=== PATIENT | female | born 1965 | race Caucasian/White ===

== ENCOUNTER 2016-10-05 01:10 | Inpatient (IN) | payer MEDICARE, MEDICAID ==
[~2016-10-05] VITALS: Ht 172.7 cm; Wt 59.9 kg
[~2016-10-05 01:10] MED LIST: CARB200T6 PO; GABA-531 PO; OLAN5Z PO
[2016-10-05] MEDS ORDERED: QUEtiapine FUMARATE 100 MG TABLET PO PRN (02:15)
[2016-10-05] MEDS ORDERED: ZOLPIDEM TARTRATE 10 MG TABLET PO PRN (02:15)
[2016-10-05] MEDS ORDERED: INFLUENZA VIRUS VACCINE QVS 2016-17 (3YR+)/PF 60 MCG/0.5 ML SYRINGE IM ONE (03:45)
[2016-10-05 04:05] VITALS: BP 131/85
[2016-10-05] MEDS: NICOTINE 21 MG/24 HOUR PATCH TD SCH (10:13)
[2016-10-05] MEDS: BACITRACIN 28.4 GM OINTMENT TP SCH ×2 (10:13→21:29)
[2016-10-05] MEDS ORDERED: DiphenhydrAMINE HCL 50 MG/ML VIAL IM ONE (11:45)
[2016-10-05] MEDS ORDERED: LORazepam 2 MG/ML VIAL IM ONE (11:45)
[2016-10-05 16:12] VITALS: BP 110/67
[2016-10-05] MEDS: OLANZapine 7.5 MG TABLET PO SCH (21:29)
[2016-10-06] MEDS: LORazepam 2 MG TABLET PO PRN (06:59)
[2016-10-06 07:35] LABS: BASOPHILS # (AUTO) 0.04 K/uL (0.00-0.20); BASOPHILS % (AUTO) 0.6 % (0.0-2.0); EOSINOPHILS # (AUTO) 0.03 K/uL (0.00-0.70); EOSINOPHILS % (AUTO) 0.52 % (1.0-6.0); HEMATOCRIT 36.1 % (36-46); LYMPHOCYTES # (AUTO) 1.8 K/uL (1.0-4.8); LYMPHOCYTES % (AUTO) 28.2 % (22.0-44.0); MEAN CORPUSCULAR HEMOGLOBIN 28.6 pg (26.0-34.0); MEAN CORPUSCULAR HGB CONC 33.3 G/dL (31.0-37.0); MEAN CORPUSCULAR VOLUME 86 fL (80-100); MONOCYTES # (AUTO) 0.7 K/uL (0.1-1.0); MONOCYTES % (AUTO) 10.1 % (2.0-9.0); NEUTROPHILS % (AUTO) 60.6 % (40.0-70.0); PLATELET COUNT (AUTO) 224 K/uL (150-450); RED CELL DISTRIBUTION WIDTH 16.3 % (11.5-14.5); WHITE BLOOD COUNT (AUTO) 6.5 K/uL (4.5-11.0)
[2016-10-06 08:02] VITALS: BP 112/68
[2016-10-06 08:13] LABS: ALANINE AMINOTRANSFERASE 23 U/L (12-78); ALBUMIN 2.6 g/dL (3.4-5.0); ANION GAP 6 mmol/L (8-16); ASPARTATE AMINOTRANSFERASE 26 U/L (15-37); BILIRUBIN,TOTAL 0.2 mg/dL (0.1-1.0); CALCIUM, TOTAL 8.6 mg/dL (8.8-10.5); CARBON DIOXIDE 27 mmol/L (22-29); CHLORIDE 107 mmol/L (98-107); CHOL/HDL RATIO 2.8 (3.9-5.7); CREATININE 0.59 mg/dL (0.60-1.30); GLOMERULAR FILTR. RATE CALC > 60 mL/min (>60); POTASSIUM 3.7 mmol/L (3.5-5.1); SODIUM SERUM 140 mmol/L (136-145); THYROID STIMULATING HORMONE 0.79 uIU/mL (0.36-3.74); UREA NITROGEN, BLOOD 12 mg/dL (7-18)
[2016-10-06] MEDS: BACITRACIN 28.4 GM OINTMENT TP SCH ×2 (09:14→17:24)
[2016-10-06] MEDS: NICOTINE 21 MG/24 HOUR PATCH TD SCH (09:14)
[2016-10-06 16:11] VITALS: BP 111/67
[2016-10-06] MEDS: OLANZapine 7.5 MG TABLET PO SCH (20:38)
[2016-10-07 05:19] VITALS: BP_SYST 101; BP_SYST 108; BP_DIAS 68
[2016-10-07] MEDS: LORazepam 2 MG TABLET PO PRN ×2 (05:32→19:26)
[2016-10-07 08:22] VITALS: BP 110/72
[2016-10-07] MEDS: BACITRACIN 28.4 GM OINTMENT TP SCH ×2 (09:59→16:36)
[2016-10-07] MEDS: NICOTINE 21 MG/24 HOUR PATCH TD SCH (09:59)
[2016-10-07 16:44] VITALS: BP 90/63
[2016-10-07] MEDS: OLANZapine 7.5 MG TABLET PO SCH (20:34)
[2016-10-08] MEDS: NICOTINE 21 MG/24 HOUR PATCH TD SCH (08:22)
[2016-10-08] MEDS: BACITRACIN 28.4 GM OINTMENT TP SCH ×2 (08:22→16:38)
[2016-10-08 08:25] VITALS: BP 105/69
[2016-10-08] MEDS: LORazepam 2 MG TABLET PO PRN ×2 (08:31→20:42)
[2016-10-08] MEDS ORDERED: MAG HYDROX/AL HYDROX/SIMETH ES 30 ML SUSPENSION UDCUP PO PRN (16:00)
[2016-10-08 16:14] VITALS: BP 100/62
[2016-10-08] MEDS: OLANZapine 7.5 MG TABLET PO SCH (20:35)
[2016-10-08] MEDS ORDERED: AMITRIPTYLINE HCL 25 MG TABLET PO PRN (21:30)
[2016-10-09 05:56] VITALS: BP 98/65
[2016-10-09 08:14] VITALS: BP 91/55
[2016-10-09] MEDS ORDERED: TUBERCULIN, PURIFIED PROTEIN DERIVATIVE 5 TU/0.1 ML SYG ID ONE (09:00)
[2016-10-09 09:01] LABS: INR 0.9 (0.9-1.1); PROTHROMBIN TIME 9.8 SEC (9.4-11.6)
[2016-10-09] MEDS: NICOTINE 21 MG/24 HOUR PATCH TD SCH (09:04)
[2016-10-09] MEDS: BACITRACIN 28.4 GM OINTMENT TP SCH ×2 (09:05→16:37)
[2016-10-09 09:43] LABS: CREATINE KINASE MB 1.5 ng/mL (0-5); CREATINE KINASE, TOTAL 86 U/L (26-192)
[2016-10-09 13:20] VITALS: BP 110/61
[2016-10-09 16:05] VITALS: BP 103/78
[2016-10-09] MEDS: LORazepam 2 MG TABLET PO PRN (20:03)
[2016-10-09] MEDS: OLANZapine 7.5 MG TABLET PO SCH (20:35)
[2016-10-10 01:47] VITALS: BP 108/60
[2016-10-10 08:03] VITALS: BP 100/63
[2016-10-10] MEDS: BACITRACIN 28.4 GM OINTMENT TP SCH ×2 (08:31→16:32)
[2016-10-10] MEDS: NICOTINE 21 MG/24 HOUR PATCH TD SCH (08:31)
[2016-10-10 16:03] VITALS: BP 117/64
[2016-10-10] MEDS: OLANZapine 7.5 MG TABLET PO SCH (20:38)
[2016-10-10] MEDS: LORazepam 2 MG TABLET PO PRN (23:42)
[2016-10-11 00:01] VITALS: BP 108/66
[2016-10-11] MEDS: ACETAMINOPHEN 325 MG TABLET PO PRN (06:42)
[2016-10-11 08:05] VITALS: BP 106/68
[2016-10-11] MEDS: NICOTINE 21 MG/24 HOUR PATCH TD SCH (09:31)
[2016-10-11] MEDS: BACITRACIN 28.4 GM OINTMENT TP SCH ×2 (09:31→17:03)
[2016-10-11 16:06] VITALS: BP 109/65
[2016-10-11] MEDS: LORazepam 2 MG TABLET PO PRN (19:24)
[2016-10-11] MEDS: OLANZapine 7.5 MG TABLET PO SCH (20:05)
[2016-10-12 05:33] VITALS: BP 120/69
[2016-10-12 08:24] VITALS: BP 122/70
[2016-10-12] MEDS: BACITRACIN 28.4 GM OINTMENT TP SCH ×2 (09:28→16:12)
[2016-10-12] MEDS: NICOTINE 21 MG/24 HOUR PATCH TD SCH (09:28)
[2016-10-12] MEDS: LORazepam 2 MG TABLET PO PRN ×2 (09:28→20:25)
[2016-10-12 16:08] VITALS: BP 105/63
[2016-10-12] MEDS: OLANZapine 7.5 MG TABLET PO SCH (20:25)
[2016-10-13 00:37] VITALS: BP 106/71
[2016-10-13 08:25] VITALS: BP 120/69
[2016-10-13] MEDS: BACITRACIN 28.4 GM OINTMENT TP SCH ×2 (08:54→16:33)
[2016-10-13] MEDS: NICOTINE 21 MG/24 HOUR PATCH TD SCH (08:54)
[2016-10-13 16:00] VITALS: BP 115/67
[2016-10-13] MEDS: ACETAMINOPHEN 325 MG TABLET PO PRN (17:16)
[2016-10-13] MEDS: OLANZapine 7.5 MG TABLET PO SCH (20:34)
[2016-10-13] MEDS: LORazepam 2 MG TABLET PO PRN ×2 (22:56→23:01)
[2016-10-14 00:01] VITALS: BP 114/67
[2016-10-14 08:28] VITALS: BP 110/64
[2016-10-14] MEDS: NICOTINE 21 MG/24 HOUR PATCH TD SCH (08:54)
[2016-10-14] MEDS: BACITRACIN 28.4 GM OINTMENT TP SCH ×2 (08:56→16:39)
[2016-10-14 16:15] VITALS: BP 113/64
[2016-10-14] MEDS: LORazepam 2 MG TABLET PO PRN (17:07)
[2016-10-14] MEDS: OLANZapine 7.5 MG TABLET PO SCH (20:37)
[2016-10-15 05:42] VITALS: BP 118/69
[2016-10-15 08:06] VITALS: BP 108/63
[2016-10-15] MEDS: NICOTINE 21 MG/24 HOUR PATCH TD SCH (08:40)
[2016-10-15] MEDS: BACITRACIN 28.4 GM OINTMENT TP SCH ×2 (09:31→18:09)
[2016-10-15 16:00] VITALS: BP 110/70
[2016-10-15] MEDS: LORazepam 2 MG TABLET PO PRN (20:09)
[2016-10-15] MEDS: OLANZapine 7.5 MG TABLET PO SCH (20:34)
[2016-10-15] MEDS: DIVALPROEX SODIUM 500 MG DR TABLET PO SCH (20:40)
[2016-10-16 00:05] VITALS: BP 123/74
[2016-10-16] MEDS: NICOTINE 21 MG/24 HOUR PATCH TD SCH (08:52)
[2016-10-16] MEDS: BACITRACIN 28.4 GM OINTMENT TP SCH ×2 (08:53→16:35)
[2016-10-16] MEDS: DIVALPROEX SODIUM 500 MG DR TABLET PO SCH ×2 (08:55→20:12)
[2016-10-16 09:01] VITALS: BP 81/67
[2016-10-16] MEDS: ACETAMINOPHEN 325 MG TABLET PO PRN (13:11)
[2016-10-16 13:14] VITALS: BP 115/68
[2016-10-16] MEDS: LORazepam 2 MG TABLET PO PRN ×2 (14:01→19:22)
[2016-10-16 16:02] VITALS: BP 120/74
[2016-10-16] MEDS: OLANZapine 10 MG TABLET PO SCH (20:12)
[2016-10-16] MEDS ORDERED: OLANZapine 10 MG TABLET PO SCH (21:00)
[2016-10-17 05:47] VITALS: BP 115/80
[2016-10-17] MEDS: DIVALPROEX SODIUM 500 MG DR TABLET PO SCH ×2 (08:39→20:08)
[2016-10-17] MEDS: BACITRACIN 28.4 GM OINTMENT TP SCH ×2 (08:39→17:03)
[2016-10-17] MEDS: NICOTINE 21 MG/24 HOUR PATCH TD SCH (08:39)
[2016-10-17] MEDS: OLANZapine 10 MG TABLET PO SCH ×2 (08:39→20:09)
[2016-10-17] MEDS: LORazepam 2 MG TABLET PO PRN ×2 (08:43→20:08)
[2016-10-17 08:53] VITALS: BP 120/69
[2016-10-17 16:18] VITALS: BP 120/82
[2016-10-18 06:31] VITALS: BP 90/60
[2016-10-18] MEDS: OLANZapine 10 MG TABLET PO SCH ×2 (08:32→20:04)
[2016-10-18] MEDS: NICOTINE 21 MG/24 HOUR PATCH TD SCH (08:32)
[2016-10-18] MEDS: DIVALPROEX SODIUM 500 MG DR TABLET PO SCH ×2 (08:33→20:35)
[2016-10-18] MEDS: LORazepam 2 MG TABLET PO PRN ×2 (08:33→20:05)
[2016-10-18] MEDS: BACITRACIN 28.4 GM OINTMENT TP SCH ×2 (08:34→16:08)
[2016-10-18 10:25] VITALS: BP 112/75
[2016-10-18 16:06] VITALS: BP 108/62
[2016-10-19 03:30] VITALS: BP 114/73
[2016-10-19 08:20] VITALS: BP 115/65
[2016-10-19] MEDS: OLANZapine 10 MG TABLET PO SCH ×2 (08:24→20:04)
[2016-10-19] MEDS: NICOTINE 21 MG/24 HOUR PATCH TD SCH (08:24)
[2016-10-19] MEDS: BACITRACIN 28.4 GM OINTMENT TP SCH ×2 (08:26→16:55)
[2016-10-19] MEDS: DIVALPROEX SODIUM 500 MG DR TABLET PO SCH ×2 (09:00→21:00)
[2016-10-19 16:05] VITALS: BP 119/67
[2016-10-19] MEDS: LORazepam 2 MG TABLET PO PRN (22:15)
[2016-10-20 03:14] VITALS: BP 110/63
[2016-10-20 08:05] VITALS: BP 117/65
[2016-10-20] MEDS: OLANZapine 10 MG TABLET PO SCH (08:24)
[2016-10-20] MEDS: NICOTINE 21 MG/24 HOUR PATCH TD SCH (08:25)
[2016-10-20] MEDS: DIVALPROEX SODIUM 500 MG DR TABLET PO SCH (08:29)
[2016-10-20] MEDS: BACITRACIN 28.4 GM OINTMENT TP SCH (08:30)
[2016-10-20] MEDS ORDERED: DIVA500T35 PO (11:59)
[2016-10-20] MEDS ORDERED: OLAN10TA3 PO (11:59)
== END 2016-10-20 13:24 | disposition home or self-care (01) | DRG 885 ==
LOC: B2X 02:30 → EDSTATUS 02:58
DX: F25.0 Schizoaffective disorder, bipolar type (principal); E46 Unspecified protein-calorie malnutrition; R64 Cachexia; F17.210 Nicotine dependence, cigarettes, uncomplicated; F15.90 Other stimulant use, unspecified, uncomplicated; E55.9 Vitamin D deficiency, unspecified; G43.909 Migraine, unspecified, not intractable, without status migrainosus; K21.9 Gastro-esophageal reflux disease without esophagitis; Z66 Do not resuscitate; D64.9 Anemia, unspecified; B19.20 Unspecified viral hepatitis C without hepatic coma; J44.9 Chronic obstructive pulmonary disease, unspecified; S01.81XA Laceration without foreign body of other part of head, initial encounter; S01.01XA Laceration without foreign body of scalp, initial encounter; F15.10 Other stimulant abuse, uncomplicated; X58.XXXA Exposure to other specified factors, initial encounter; Y93.9 Activity, unspecified; Y92.89 Other specified places as the place of occurrence of the external cause; Y99.8 Other external cause status; Z87.440 Personal history of urinary (tract) infections; Z91.19 Patient's noncompliance with other medical treatment and regimen; Z59.0 Homelessness; Z91.5 Personal history of self-harm; Z88.8 Allergy status to other drugs, medicaments and biological substances; Z28.21 Immunization not carried out because of patient refusal
CPT/HCPCS: 82105; 82306; 82607; 82746; 83036; 83735; 84439; 84443; 86592; 87389; J1200; J2060; J3230

== ENCOUNTER 2016-10-22 19:10 | Inpatient (IN) | payer MEDICARE, MEDICAID ==
[~2016-10-22] VITALS: Ht 165.1 cm; Wt 60.6 kg
[~2016-10-22 19:10] MED LIST changes: -CARB200T6 PO; +DIVA500T35 PO; -GABA-531 PO; +OLAN10TA3 PO; -OLAN5Z PO
[2016-10-22 19:32] LABS: BASOPHILS % (AUTO) 0.4 % (0.0-2.0); EOSINOPHILS % (AUTO) 0.1 % (1.0-6.0); HEMATOCRIT 37.4 % (36-46); HEMOGLOBIN 12.2 g/dL (12.0-16.0); LYMPHOCYTES # (AUTO) 3.2 K/uL (1.0-4.8); LYMPHOCYTES % (AUTO) 33.5 % (22.0-44.0); MEAN CORPUSCULAR HGB CONC 32.7 G/dL (31.0-37.0); MEAN CORPUSCULAR VOLUME 85 fL (80-100); MONOCYTES % (AUTO) 10.4 % (2.0-9.0); NEUTROPHILS # (AUTO) 5.3 K/uL (1.8-7.7); NEUTROPHILS % (AUTO) 55.6 % (40.0-70.0); PLATELET COUNT (AUTO) 279 K/uL (150-450); RBC MORPHOLOGY COMMENT ABNORMAL RBC MORPH; RED BLOOD CELL COUNT(AUTO) 4.37 MIL/uL (4.00-5.20); RED CELL DISTRIBUTION WIDTH 17.7 % (11.5-14.5); WHITE BLOOD COUNT (AUTO) 9.6 K/uL (4.5-11.0)
[2016-10-22 19:39] LABS: ANION GAP 9 mmol/L (8-16); CALCIUM, TOTAL 9.4 mg/dL (8.8-10.5); CARBON DIOXIDE 28 mmol/L (22-29); CHLORIDE 105 mmol/L (98-107); CREATININE 0.87 mg/dL (0.60-1.30); GLOMERULAR FILTR. RATE CALC > 60 mL/min (>60); POTASSIUM 3.9 mmol/L (3.5-5.1); SODIUM SERUM 142 mmol/L (136-145); UREA NITROGEN, BLOOD 23 mg/dL (7-18)
[2016-10-22 19:49] LABS: ALANINE AMINOTRANSFERASE 54 U/L (12-78); ALBUMIN 3.8 g/dL (3.4-5.0); ASPARTATE AMINOTRANSFERASE 66 U/L (15-37); BILIRUBIN,TOTAL 0.3 mg/dL (0.1-1.0); TOTAL PROTEIN, SERUM 8.1 g/dL (6.4-8.2)
[2016-10-22 19:51] LABS: SALICYLATE 3.1 mg/dL (2.8-20.0)
[2016-10-22 19:52] LABS: ACETAMINOPHEN < 2 mcg/mL (10-30)
[2016-10-22] MEDS ORDERED: LORazepam 2 MG/ML VIAL IM ONE (20:00)
[2016-10-22] MEDS ORDERED: DiphenhydrAMINE HCL 50 MG/ML VIAL IM ONE (20:00)
[2016-10-22] MEDS ORDERED: HALOPERIDOL LACTATE 5 MG/ML VIAL IM ONE (20:00)
[2016-10-22] MEDS ORDERED: HALOPERIDOL 5 MG TABLET PO PRN (20:30)
[2016-10-22] MEDS ORDERED: ZOLPIDEM TARTRATE 10 MG TABLET PO PRN (20:30)
[2016-10-22] MEDS: DIVALPROEX SODIUM 500 MG DR TABLET PO SCH (21:00)
[2016-10-22] MEDS: OLANZapine 10 MG TABLET PO SCH (21:00)
[2016-10-22 21:34] VITALS: BP 114/59
[2016-10-22] MEDS ORDERED: PNEUMOCOCCAL VACCINE POLYVALENT 0.5 ML VIAL [PPSV23] IM ONE (22:00)
[2016-10-22] MEDS ORDERED: INFLUENZA VIRUS VACCINE QVS 2016-17 (3YR+)/PF 60 MCG/0.5 ML SYRINGE IM ONE (22:00)
[2016-10-23] MEDS ORDERED: LORazepam 2 MG/ML VIAL IM ONE ×2 (05:45→16:15)
[2016-10-23] MEDS ORDERED: DiphenhydrAMINE HCL 50 MG/ML VIAL IM ONE ×2 (05:45→16:15)
[2016-10-23] MEDS: DIVALPROEX SODIUM 500 MG DR TABLET PO SCH ×2 (09:00→20:32)
[2016-10-23] MEDS: OLANZapine 10 MG TABLET PO SCH ×2 (09:00→20:31)
[2016-10-24] MEDS ORDERED: DiphenhydrAMINE HCL 50 MG/ML VIAL IM ONE (00:30)
[2016-10-24] MEDS ORDERED: LORazepam 2 MG/ML VIAL IM ONE (00:30)
[2016-10-24] MEDS: OLANZapine 10 MG TABLET PO SCH ×2 (08:27→20:19)
[2016-10-24] MEDS: DIVALPROEX SODIUM 500 MG DR TABLET PO SCH ×2 (08:28→20:19)
[2016-10-24 08:41] VITALS: BP 105/66
[2016-10-24] MEDS: NICOTINE 21 MG/24 HOUR PATCH TD SCH (09:53)
[2016-10-24 16:14] VITALS: BP 102/68
[2016-10-25] MEDS: DIVALPROEX SODIUM 500 MG DR TABLET PO SCH ×2 (08:07→20:25)
[2016-10-25] MEDS: OLANZapine 10 MG TABLET PO SCH ×2 (08:07→20:25)
[2016-10-25] MEDS: NICOTINE 21 MG/24 HOUR PATCH TD SCH (08:07)
[2016-10-25 08:16] VITALS: BP 105/65
[2016-10-25 13:15] VITALS: BP 109/67
[2016-10-25] MEDS: IBUPROFEN 600 MG TABLET PO PRN (14:18)
[2016-10-25 15:18] VITALS: BP 110/65
[2016-10-26] MEDS: IBUPROFEN 600 MG TABLET PO PRN ×2 (03:18→20:57)
[2016-10-26] MEDS: OLANZapine 10 MG TABLET PO SCH ×2 (08:03→20:12)
[2016-10-26] MEDS: NICOTINE 21 MG/24 HOUR PATCH TD SCH (08:04)
[2016-10-26] MEDS: DIVALPROEX SODIUM 500 MG DR TABLET PO SCH ×2 (08:05→20:12)
[2016-10-26 08:18] VITALS: BP 110/64
[2016-10-26 17:59] VITALS: BP 121/78
[2016-10-27 06:00] VITALS: BP 140/71
[2016-10-27] MEDS: DIVALPROEX SODIUM 500 MG DR TABLET PO SCH ×3 (08:09→20:02)
[2016-10-27] MEDS: OLANZapine 10 MG TABLET PO SCH (08:09)
[2016-10-27] MEDS: NICOTINE 21 MG/24 HOUR PATCH TD SCH (08:09)
[2016-10-27 08:24] VITALS: BP 116/74
[2016-10-27] MEDS ORDERED: OLANZapine 5 MG TABLET PO ONE (09:15)
[2016-10-27] MEDS: LORazepam 2 MG TABLET PO PRN (20:02)
[2016-10-27] MEDS: OLANZapine 7.5 MG TABLET PO SCH (20:03)
[2016-10-28 08:22] VITALS: BP 113/64
[2016-10-28] MEDS: DIVALPROEX SODIUM 500 MG DR TABLET PO SCH ×2 (08:33→20:39)
[2016-10-28] MEDS: NICOTINE 21 MG/24 HOUR PATCH TD SCH (08:33)
[2016-10-28] MEDS: OLANZapine 7.5 MG TABLET PO SCH ×2 (08:33→20:39)
[2016-10-28 16:14] VITALS: BP 104/73
[2016-10-28] MEDS: IBUPROFEN 600 MG TABLET PO PRN (19:51)
[2016-10-28] MEDS: LORazepam 2 MG TABLET PO PRN (19:51)
[2016-10-29 04:25] VITALS: BP 123/76
[2016-10-29] MEDS ORDERED: ACETAMINOPHEN 325 MG TABLET PO PRN (04:30)
[2016-10-29] MEDS: OLANZapine 7.5 MG TABLET PO SCH (08:16)
[2016-10-29] MEDS: DIVALPROEX SODIUM 500 MG DR TABLET PO SCH (08:17)
[2016-10-29] MEDS: NICOTINE 21 MG/24 HOUR PATCH TD SCH (08:17)
[2016-10-29 08:43] VITALS: BP 124/68
== END 2016-10-29 13:42 | disposition home or self-care (01) | DRG 885 ==
LOC: EMS 19:13 → B3A 20:28
DX: F25.0 Schizoaffective disorder, bipolar type (principal); F11.20 Opioid dependence, uncomplicated; F14.20 Cocaine dependence, uncomplicated; F15.20 Other stimulant dependence, uncomplicated; J44.9 Chronic obstructive pulmonary disease, unspecified; K21.9 Gastro-esophageal reflux disease without esophagitis; B19.20 Unspecified viral hepatitis C without hepatic coma; F17.210 Nicotine dependence, cigarettes, uncomplicated; G43.909 Migraine, unspecified, not intractable, without status migrainosus; D64.9 Anemia, unspecified; I10 Essential (primary) hypertension; F11.10 Opioid abuse, uncomplicated; F12.20 Cannabis dependence, uncomplicated; Z28.21 Immunization not carried out because of patient refusal; Z71.6 Tobacco abuse counseling; Z71.51 Drug abuse counseling and surveillance of drug abuser; Z88.8 Allergy status to other drugs, medicaments and biological substances; Z79.899 Other long term (current) drug therapy; Z59.0 Homelessness; Z91.19 Patient's noncompliance with other medical treatment and regimen; Z80.9 Family history of malignant neoplasm, unspecified; Z82.61 Family history of arthritis
CPT/HCPCS: 51701; 87081; 90471; 96372; 99285; G0480; G0481; J1200; J1630; J2060; J3230

== ENCOUNTER 2016-11-09 05:06 | Emergency (ER) | payer MEDICARE, MEDICAID ==
[~2016-11-09] VITALS: Ht 172.7 cm; Wt 70.5 kg
[2016-11-09 06:14] LABS: ANION GAP 8 mmol/L (8-16); CALCIUM, TOTAL 8.5 mg/dL (8.8-10.5); CARBON DIOXIDE 26 mmol/L (22-29); CHLORIDE 104 mmol/L (98-107); GLOMERULAR FILTR. RATE CALC > 60 mL/min (>60); POTASSIUM 3.7 mmol/L (3.5-5.1); SODIUM SERUM 138 mmol/L (136-145); UREA NITROGEN, BLOOD 13 mg/dL (7-18)
[2016-11-09 06:21] LABS: ALANINE AMINOTRANSFERASE 29 U/L (12-78); ALBUMIN 2.8 g/dL (3.4-5.0); ASPARTATE AMINOTRANSFERASE 24 U/L (15-37); BILIRUBIN,TOTAL 0.2 mg/dL (0.1-1.0); TOTAL PROTEIN, SERUM 6.3 g/dL (6.4-8.2)
[2016-11-09 06:33] LABS: HEMATOCRIT 36.3 % (36-46); HEMOGLOBIN 11.8 g/dL (12.0-16.0); MEAN CORPUSCULAR HEMOGLOBIN 28.3 pg (26.0-34.0); MEAN CORPUSCULAR HGB CONC 32.5 G/dL (31.0-37.0); MEAN CORPUSCULAR VOLUME 87 fL (80-100); PLATELET COUNT (AUTO) 246 K/uL (150-450); RED BLOOD CELL COUNT(AUTO) 4.16 MIL/uL (4.00-5.20); RED CELL DISTRIBUTION WIDTH 18.7 % (11.5-14.5); WHITE BLOOD COUNT (AUTO) 10.4 K/uL (4.5-11.0)
[2016-11-09 06:34] LABS: BASOPHILS % (AUTO) 0.7 % (0.0-2.0); EOSINOPHILS % (AUTO) 1.7 % (1.0-6.0); LYMPHOCYTES # (AUTO) 2.8 K/uL (1.0-4.8); LYMPHOCYTES % (AUTO) 26.5 % (22.0-44.0); MONOCYTES # (AUTO) 0.8 K/uL (0.1-1.0); MONOCYTES % (AUTO) 7.8 % (2.0-9.0); NEUTROPHILS # (AUTO) 6.6 K/uL (1.8-7.7); NEUTROPHILS % (AUTO) 63.3 % (40.0-70.0)
[2016-11-09 11:20] VITALS: BP 124/69
== END 2016-11-09 11:44 | disposition home or self-care (01) ==
LOC: EMS 05:08
DX: F15.10 Other stimulant abuse, uncomplicated (principal); F11.90 Opioid use, unspecified, uncomplicated; F14.90 Cocaine use, unspecified, uncomplicated; F20.9 Schizophrenia, unspecified; J44.9 Chronic obstructive pulmonary disease, unspecified; K21.9 Gastro-esophageal reflux disease without esophagitis; F17.210 Nicotine dependence, cigarettes, uncomplicated; Z88.5 Allergy status to narcotic agent
CPT/HCPCS: 36415; 80053; 85025; 99284; G0480

== ENCOUNTER 2016-11-26 11:22 | Inpatient (IN) | payer MEDICARE, MEDICAID ==
[~2016-11-26] VITALS: Ht 172.7 cm; Wt 57.2 kg
[2016-11-26 12:25] LABS: BASOPHILS # (AUTO) 0.04 K/uL (0.00-0.20); BASOPHILS % (AUTO) 0.7 % (0.0-2.0); EOSINOPHILS % (AUTO) 1.52 % (1.0-6.0); HEMATOCRIT 34.5 % (36-46); HEMOGLOBIN 11.4 g/dL (12.0-16.0); LYMPHOCYTES # (AUTO) 2.3 K/uL (1.0-4.8); LYMPHOCYTES % (AUTO) 36.8 % (22.0-44.0); MEAN CORPUSCULAR HEMOGLOBIN 27.9 pg (26.0-34.0); MEAN CORPUSCULAR HGB CONC 32.9 G/dL (31.0-37.0); MEAN CORPUSCULAR VOLUME 85 fL (80-100); MONOCYTES # (AUTO) 0.4 K/uL (0.1-1.0); MONOCYTES % (AUTO) 6.1 % (2.0-9.0); NEUTROPHILS # (AUTO) 3.5 K/uL (1.8-7.7); NEUTROPHILS % (AUTO) 54.9 % (40.0-70.0); PLATELET COUNT (AUTO) 217 K/uL (150-450); RED BLOOD CELL COUNT(AUTO) 4.07 MIL/uL (4.00-5.20); RED CELL DISTRIBUTION WIDTH 19.9 % (11.5-14.5); WHITE BLOOD COUNT (AUTO) 6.3 K/uL (4.5-11.0)
[2016-11-26 12:27] LABS: RBC MORPHOLOGY COMMENT ABNORMAL RBC MORPH
[2016-11-26 12:34] LABS: ANION GAP 6 mmol/L (8-16); CALCIUM, TOTAL 8.9 mg/dL (8.8-10.5); CARBON DIOXIDE 28 mmol/L (22-29); CHLORIDE 106 mmol/L (98-107); CREATININE 0.53 mg/dL (0.60-1.30); GLOMERULAR FILTR. RATE CALC > 60 mL/min (>60); POTASSIUM 3.7 mmol/L (3.5-5.1); SODIUM SERUM 140 mmol/L (136-145); UREA NITROGEN, BLOOD 11 mg/dL (7-18)
[2016-11-26 12:43] LABS: ALANINE AMINOTRANSFERASE 28 U/L (12-78); ALBUMIN 2.7 g/dL (3.4-5.0); ASPARTATE AMINOTRANSFERASE 24 U/L (15-37); BILIRUBIN,TOTAL 0.1 mg/dL (0.1-1.0)
[2016-11-26] MEDS ORDERED: HALOPERIDOL 5 MG TABLET PO PRN (14:00)
[2016-11-26] MEDS ORDERED: DiphenhydrAMINE HCL 50 MG/ML VIAL ONE (16:11)
[2016-11-26] MEDS ORDERED: HALOPERIDOL LACTATE 5 MG/ML VIAL ONE (16:11)
[2016-11-26] MEDS ORDERED: LORazepam 2 MG/ML VIAL ONE (16:11)
[2016-11-26] MEDS ORDERED: DiphenhydrAMINE HCL 50 MG/ML VIAL IM ONE (16:15)
[2016-11-26] MEDS ORDERED: HALOPERIDOL LACTATE 5 MG/ML VIAL IM ONE (16:15)
[2016-11-26] MEDS ORDERED: LORazepam 2 MG/ML VIAL IM ONE (16:15)
[2016-11-26 16:30] VITALS: BP 161/97
[2016-11-26] MEDS ORDERED: PNEUMOCOCCAL VACCINE POLYVALENT 0.5 ML VIAL [PPSV23] IM ONE (18:00)
[2016-11-26] MEDS ORDERED: BACITRACIN 28.4 GM OINTMENT TP PRN (18:30)
[2016-11-27] MEDS ORDERED: ChlorproMAZINE HCL 50 MG TABLET PO PRN (10:00)
[2016-11-27] MEDS ORDERED: DIVALPROEX SODIUM 500 MG ER TABLET PO SCH (10:00)
[2016-11-27] MEDS: DIVALPROEX SODIUM 500 MG DR TABLET PO SCH ×2 (10:17→20:21)
[2016-11-27] MEDS: OLANZapine 7.5 MG TABLET PO SCH ×2 (10:17→20:22)
[2016-11-27] MEDS ORDERED: CloNIDine HCL 0.1 MG TABLET PO PRN (12:00)
[2016-11-27] MEDS ORDERED: ACETAMINOPHEN 325 MG TABLET PO PRN (12:00)
[2016-11-27] MEDS ORDERED: IBUPROFEN 600 MG TABLET PO PRN (12:00)
[2016-11-27 16:27] VITALS: BP 110/68
[2016-11-27] MEDS: ZOLPIDEM TARTRATE 10 MG TABLET PO PRN (21:05)
[2016-11-28] MEDS: AmLODIPine BESYLATE 2.5 MG TABLET PO SCH ×2 (09:00→09:26)
[2016-11-28] MEDS: DIVALPROEX SODIUM 500 MG DR TABLET PO SCH ×2 (09:25→20:39)
[2016-11-28] MEDS: OLANZapine 7.5 MG TABLET PO SCH ×2 (09:26→20:39)
[2016-11-28] MEDS ORDERED: ALBUTEROL SULFATE HFA 90 MCG/PUFF 8 GM INHALER IH PRN (11:00)
[2016-11-28] MEDS: ZOLPIDEM TARTRATE 10 MG TABLET PO PRN (21:03)
[2016-11-29] MEDS: AmLODIPine BESYLATE 2.5 MG TABLET PO SCH (09:00)
[2016-11-29] MEDS: DIVALPROEX SODIUM 500 MG DR TABLET PO SCH ×2 (09:25→20:37)
[2016-11-29] MEDS: OLANZapine 7.5 MG TABLET PO SCH ×2 (09:25→20:38)
[2016-11-29] MEDS: NICOTINE 21 MG/24 HOUR PATCH TD SCH (16:56)
[2016-11-29] MEDS: ZOLPIDEM TARTRATE 10 MG TABLET PO PRN (21:01)
[2016-11-30] MEDS: DIVALPROEX SODIUM 500 MG DR TABLET PO SCH ×2 (08:51→20:33)
[2016-11-30] MEDS: OLANZapine 7.5 MG TABLET PO SCH ×2 (08:51→20:33)
[2016-11-30] MEDS: NICOTINE 21 MG/24 HOUR PATCH TD SCH (08:52)
[2016-11-30] MEDS: AmLODIPine BESYLATE 2.5 MG TABLET PO SCH (09:00)
[2016-11-30 16:20] VITALS: BP 135/68
[2016-11-30] MEDS: ZOLPIDEM TARTRATE 10 MG TABLET PO PRN (21:04)
[2016-12-01 07:00] VITALS: BP 130/78
[2016-12-01 08:39] VITALS: BP 110/60
[2016-12-01] MEDS: OLANZapine 7.5 MG TABLET PO SCH ×2 (08:40→20:35)
[2016-12-01] MEDS: DIVALPROEX SODIUM 500 MG DR TABLET PO SCH ×2 (08:40→20:35)
[2016-12-01] MEDS: AmLODIPine BESYLATE 2.5 MG TABLET PO SCH (08:40)
[2016-12-01] MEDS: NICOTINE 21 MG/24 HOUR PATCH TD SCH (08:41)
[2016-12-01 17:03] VITALS: BP 97/67
[2016-12-02 08:23] VITALS: BP 109/60
[2016-12-02] MEDS: DIVALPROEX SODIUM 500 MG DR TABLET PO SCH ×2 (09:00→21:27)
[2016-12-02] MEDS: OLANZapine 7.5 MG TABLET PO SCH ×2 (09:00→21:27)
[2016-12-02] MEDS: AmLODIPine BESYLATE 2.5 MG TABLET PO SCH (09:00)
[2016-12-02] MEDS: NICOTINE 21 MG/24 HOUR PATCH TD SCH (09:25)
[2016-12-02 16:40] VITALS: BP 126/69
[2016-12-02] MEDS: LORazepam 2 MG TABLET PO PRN (16:50)
[2016-12-03 06:28] VITALS: BP 121/74
[2016-12-03 08:13] VITALS: BP 100/54
[2016-12-03] MEDS: NICOTINE 21 MG/24 HOUR PATCH TD SCH (08:42)
[2016-12-03] MEDS: AmLODIPine BESYLATE 2.5 MG TABLET PO SCH (08:42)
[2016-12-03] MEDS: OLANZapine 7.5 MG TABLET PO SCH ×2 (08:42→20:13)
[2016-12-03] MEDS: DIVALPROEX SODIUM 500 MG DR TABLET PO SCH ×2 (08:42→20:13)
[2016-12-03 16:11] VITALS: BP 102/60
[2016-12-03] MEDS: LORazepam 2 MG TABLET PO PRN (22:08)
[2016-12-04 05:08] VITALS: BP 101/68
[2016-12-04] MEDS: AmLODIPine BESYLATE 2.5 MG TABLET PO SCH (08:16)
[2016-12-04] MEDS: OLANZapine 7.5 MG TABLET PO SCH ×2 (08:16→21:33)
[2016-12-04] MEDS: DIVALPROEX SODIUM 500 MG DR TABLET PO SCH ×2 (08:16→21:33)
[2016-12-04] MEDS: NICOTINE 21 MG/24 HOUR PATCH TD SCH (08:16)
[2016-12-04 08:21] LABS: CHOL/HDL RATIO 5.1 (3.9-5.7)
[2016-12-04 09:06] VITALS: BP 100/53
[2016-12-04 16:30] VITALS: BP 107/65
[2016-12-04] MEDS: LORazepam 2 MG TABLET PO PRN (18:44)
[2016-12-05 08:43] VITALS: BP 100/56
[2016-12-05] MEDS: OLANZapine 7.5 MG TABLET PO SCH ×2 (09:50→20:20)
[2016-12-05] MEDS: NICOTINE 21 MG/24 HOUR PATCH TD SCH (09:50)
[2016-12-05] MEDS: DIVALPROEX SODIUM 500 MG DR TABLET PO SCH ×2 (09:50→20:20)
[2016-12-05 16:47] VITALS: BP 108/60
[2016-12-05 19:40] VITALS: BP 110/68
[2016-12-05] MEDS: LORazepam 2 MG TABLET PO PRN (19:45)
[2016-12-06 08:14] VITALS: BP 113/68
[2016-12-06] MEDS: DIVALPROEX SODIUM 500 MG DR TABLET PO SCH ×2 (09:32→20:13)
[2016-12-06] MEDS: OLANZapine 7.5 MG TABLET PO SCH ×2 (09:32→20:13)
[2016-12-06] MEDS: NICOTINE 21 MG/24 HOUR PATCH TD SCH (09:33)
[2016-12-06] MEDS: LORazepam 2 MG TABLET PO PRN ×2 (15:47→20:13)
[2016-12-06 16:20] VITALS: BP_SYST 109; BP_DIAS 7; BP_DIAS 76
[2016-12-07 08:11] VITALS: BP 125/81
[2016-12-07] MEDS: NICOTINE 21 MG/24 HOUR PATCH TD SCH (08:31)
[2016-12-07] MEDS: DIVALPROEX SODIUM 500 MG DR TABLET PO SCH ×2 (08:31→20:00)
[2016-12-07] MEDS: OLANZapine 7.5 MG TABLET PO SCH ×2 (08:31→20:00)
[2016-12-07] MEDS: LORazepam 2 MG TABLET PO PRN ×2 (14:54→20:09)
[2016-12-07 16:00] VITALS: BP 107/67
[2016-12-07 17:00] VITALS: BP 109/66
[2016-12-08] MEDS: OLANZapine 7.5 MG TABLET PO SCH (08:24)
[2016-12-08] MEDS: NICOTINE 21 MG/24 HOUR PATCH TD SCH (08:24)
[2016-12-08] MEDS: DIVALPROEX SODIUM 500 MG DR TABLET PO SCH (08:24)
[2016-12-08 08:58] VITALS: BP 100/59
[2016-12-08] MEDS ORDERED: DIVA500T35 PO (09:38)
[2016-12-08] MEDS ORDERED: OLAN7.5T2 PO (09:44)
== END 2016-12-08 14:57 | disposition home or self-care (01) | DRG 885 ==
LOC: EMS 11:24 → EEVIPCON 11:24 → B3A 15:08
PROVIDERS: ADMIT Psychiatry & Neurology Psychiatry
DX: F25.0 Schizoaffective disorder, bipolar type (principal); E43 Unspecified severe protein-calorie malnutrition; R64 Cachexia; Z68.1 Body mass index [BMI] 19.9 or less, adult; F12.90 Cannabis use, unspecified, uncomplicated; F11.90 Opioid use, unspecified, uncomplicated; F17.210 Nicotine dependence, cigarettes, uncomplicated; K21.9 Gastro-esophageal reflux disease without esophagitis; E78.5 Hyperlipidemia, unspecified; E88.09 Other disorders of plasma-protein metabolism, not elsewhere classified; J44.9 Chronic obstructive pulmonary disease, unspecified; D64.9 Anemia, unspecified; B19.20 Unspecified viral hepatitis C without hepatic coma; F15.90 Other stimulant use, unspecified, uncomplicated; I10 Essential (primary) hypertension; G43.909 Migraine, unspecified, not intractable, without status migrainosus; T14.8 Other injury of unspecified body region; Z53.29 Procedure and treatment not carried out because of patient's decision for other reasons; X58.XXXA Exposure to other specified factors, initial encounter; Y93.89 Activity, other specified; Y92.89 Other specified places as the place of occurrence of the external cause; Y99.8 Other external cause status; Z22.322 Carrier or suspected carrier of Methicillin resistant Staphylococcus aureus; Z88.8 Allergy status to other drugs, medicaments and biological substances; Z91.19 Patient's noncompliance with other medical treatment and regimen; Z28.21 Immunization not carried out because of patient refusal; Z91.5 Personal history of self-harm; Z59.0 Homelessness; Z79.899 Other long term (current) drug therapy
CPT/HCPCS: 84439; 87081; 90471; 99285; G0480; J1200; J1630; J2060

== ENCOUNTER 2018-02-14 20:11 | Inpatient (IN) | payer MEDICARE, MEDICAID ==
[~2018-02-14] VITALS: Ht 170.2 cm; Wt 80.0 kg
[~2018-02-14 20:11] MED LIST changes: +DIVA-78 PO; -DIVA500T35 PO; -OLAN10TA3 PO; +OLAN7.5T2 PO; +SERT50TA12 PO
[2018-02-14] MEDS ORDERED: LORazepam 2 MG/ML VIAL IM ONE (21:00)
[2018-02-14] MEDS ORDERED: HALOPERIDOL LACTATE 5 MG/ML VIAL IM ONE (21:00)
[2018-02-14] MEDS ORDERED: DiphenhydrAMINE HCL 50 MG/ML VIAL IM ONE (21:00)
[2018-02-14] MEDS ORDERED: LORazepam 2 MG TABLET PO PRN (21:30)
[2018-02-14] MEDS ORDERED: ZOLPIDEM TARTRATE 10 MG TABLET PO PRN (21:30)
[2018-02-14] MEDS ORDERED: HALOPERIDOL 5 MG TABLET PO PRN (21:30)
[2018-02-14 21:59] LABS: HEMATOCRIT 34.6 % (36-46); HEMOGLOBIN 11.6 g/dL (12.0-16.0); MEAN CORPUSCULAR HEMOGLOBIN 27.9 pg (26.0-34.0); MEAN CORPUSCULAR HGB CONC 33.4 G/dL (31.0-37.0); MEAN CORPUSCULAR VOLUME 83 fL (80-100); PLATELET COUNT (AUTO) 238 K/uL (150-450); RED BLOOD CELL COUNT(AUTO) 4.15 MIL/uL (4.00-5.20); RED CELL DISTRIBUTION WIDTH 17.7 % (11.5-14.5)
[2018-02-14] MEDS ORDERED: BACITRACIN 0.9 GM PACKET OINTMENT TP ONE (22:00)
[2018-02-14] MEDS ORDERED: PERTUSS(ACELL),DIPH,TET VAC/PF 0.5 ML VIAL IM ONE (22:00)
[2018-02-14 22:08] LABS: ANION GAP 13 mmol/L (8-16); CALCIUM, TOTAL 8.5 mg/dL (8.8-10.5); CARBON DIOXIDE 19 mmol/L (22-29); CHLORIDE 105 mmol/L (98-107); CREATININE 0.75 mg/dL (0.60-1.30); GLOMERULAR FILTR. RATE CALC > 60 mL/min (>60); GLUCOSE,RANDOM 77 mg/dL (70-110); POTASSIUM 3.4 mmol/L (3.5-5.1); SODIUM SERUM 137 mmol/L (136-145); UREA NITROGEN, BLOOD 12 mg/dL (7-18)
[2018-02-14 22:14] LABS: ALANINE AMINOTRANSFERASE 17 U/L (12-78); ALBUMIN 2.9 g/dL (3.4-5.0); ALKALINE PHOSPHATASE 52 U/L (46-116); ASPARTATE AMINOTRANSFERASE 19 U/L (15-37); BILIRUBIN,TOTAL 0.1 mg/dL (0.1-1.0); TOTAL PROTEIN, SERUM 5.9 g/dL (6.4-8.2)
[2018-02-14 22:26] LABS: VALPROIC ACID < 3 mcg/mL (50-100)
[2018-02-14 22:30] LABS: BAND NEUTROPHILS % (MANUAL) 0 % (0-5)
[2018-02-14 22:34] LABS: BASOPHILS % (MANUAL) 1 % (0-2); EOSINOPHILS % (MANUAL) 3 % (1-6); LYMPHOCYTES % (MANUAL) 65 % (22-44); MONOCYTES % (MANUAL) 3 % (2-9); REACTIVE LYMPHOCYTES 3 % (0-0); SEGMENTED NEUTROPHILS % 25 % (40-70)
[2018-02-14 22:35] LABS: AMPHET/METH SCREEN,URINE POSITIVE (NEGATIVE); BARBITURATE SCREEN, URINE NEGATIVE (NEGATIVE); BENZODIAZEPINES SCREEN,URINE NEGATIVE (NEGATIVE); CANNABINOID SCREEN,URINE NEGATIVE (NEGATIVE); COCAINE SCREEN,URINE NEGATIVE (NEGATIVE); METHADONE SCREEN, URINE NEGATIVE (NEGATIVE); OPIATE SCREEN,URINE NEGATIVE (NEGATIVE)
[2018-02-14 22:36] LABS: PHENCYCLIDINE SCREEN,URINE NEGATIVE (NEGATIVE)
[2018-02-15] VITALS (9 sets, daily range): BP systolic 116–138; BP diastolic 63–89
[2018-02-15] MEDS: SERTRALINE HCL 50 MG TABLET PO SCH (09:58)
[2018-02-15] MEDS: OLANZapine 7.5 MG TABLET PO SCH ×2 (09:58→20:18)
[2018-02-15] MEDS: DIVALPROEX SODIUM 500 MG DR TABLET PO SCH ×2 (09:58→20:18)
[2018-02-15] MEDS ORDERED: PNEUMOCOCCAL VACCINE POLYVALENT 0.5 ML VIAL [PPSV23] IM ONE (11:00)
[2018-02-15] MEDS ORDERED: POTASSIUM CHLORIDE 20 MEQ ER TABLET PO ONE (19:00)
[2018-02-16 01:00] VITALS: BP 111/73
[2018-02-16 05:00] VITALS: BP 119/82
[2018-02-16] MEDS: OLANZapine 7.5 MG TABLET PO SCH ×2 (11:02→20:11)
[2018-02-16] MEDS: SERTRALINE HCL 50 MG TABLET PO SCH (11:02)
[2018-02-16] MEDS: DIVALPROEX SODIUM 500 MG DR TABLET PO SCH ×2 (11:02→20:11)
[2018-02-16 16:00] VITALS: BP 100/54
[2018-02-16 16:39] VITALS: BP 99/54
[2018-02-16 19:52] VITALS: BP 103/58
[2018-02-16 21:00] VITALS: BP 100/56
[2018-02-17] MEDS: BACITRACIN 28.4 GM OINTMENT TP SCH (09:00)
[2018-02-17 09:04] VITALS: BP 123/78
[2018-02-17] MEDS: OLANZapine 7.5 MG TABLET PO SCH ×2 (09:25→20:43)
[2018-02-17] MEDS: DIVALPROEX SODIUM 500 MG DR TABLET PO SCH ×2 (09:25→20:43)
[2018-02-17] MEDS: SERTRALINE HCL 50 MG TABLET PO SCH (09:26)
[2018-02-17] MEDS ORDERED: ACETAMINOPHEN 325 MG TABLET PO PRN (11:00)
[2018-02-17] MEDS ORDERED: MAGNESIUM HYDROXIDE SUSPENSION 30 ML UDCUP PO PRN (11:00)
[2018-02-17] MEDS: NICOTINE 21 MG/24 HOUR PATCH TD SCH (12:52)
[2018-02-17 20:06] VITALS: BP 118/70
[2018-02-18 08:00] VITALS: BP 117/73
[2018-02-18] MEDS: DIVALPROEX SODIUM 500 MG DR TABLET PO SCH (08:22)
[2018-02-18] MEDS: SERTRALINE HCL 50 MG TABLET PO SCH (08:23)
[2018-02-18] MEDS: OLANZapine 7.5 MG TABLET PO SCH (08:23)
[2018-02-18] MEDS: NICOTINE 21 MG/24 HOUR PATCH TD SCH (08:29)
[2018-02-18] MEDS: BACITRACIN 28.4 GM OINTMENT TP SCH (09:00)
[2018-02-18] MEDS ORDERED: OLAN7.5T9 PO (13:08)
[2018-02-18] MEDS ORDERED: SERT50TA12 PO (13:08)
[2018-02-18] MEDS ORDERED: DIVA-78 PO (13:08)
[2018-02-18] MEDS ORDERED: NICO-802 TD (14:55)
[2018-02-18] MEDS ORDERED: BACI500P3 TP (14:56)
== END 2018-02-18 16:15 | disposition home or self-care (01) | DRG 885 ==
LOC: EMS 20:13 → B3A 02-15 07:40 → 3EC 02-15 21:00
PROC: 3E0234Z Introduction of Serum, Toxoid and Vaccine into Muscle, Percutaneous Approach (ICD-10-PCS; principal; 2018-02-15)
DX: F25.0 Schizoaffective disorder, bipolar type (principal); E43 Unspecified severe protein-calorie malnutrition; R45.851 Suicidal ideations; F41.9 Anxiety disorder, unspecified; G43.909 Migraine, unspecified, not intractable, without status migrainosus; I10 Essential (primary) hypertension; J44.9 Chronic obstructive pulmonary disease, unspecified; K21.9 Gastro-esophageal reflux disease without esophagitis; K59.00 Constipation, unspecified; K74.60 Unspecified cirrhosis of liver; B18.2 Chronic viral hepatitis C; D64.9 Anemia, unspecified; E11.9 Type 2 diabetes mellitus without complications; E78.5 Hyperlipidemia, unspecified; E87.6 Hypokalemia; F10.10 Alcohol abuse, uncomplicated; F15.10 Other stimulant abuse, uncomplicated; Z78.1 Physical restraint status; Z79.899 Other long term (current) drug therapy; Z59.0 Homelessness; Z88.8 Allergy status to other drugs, medicaments and biological substances; Y90.9 Presence of alcohol in blood, level not specified; Z71.41 Alcohol abuse counseling and surveillance of alcoholic; Z71.51 Drug abuse counseling and surveillance of drug abuser; Z23 Encounter for immunization; Z68.27 Body mass index [BMI] 27.0-27.9, adult
CPT/HCPCS: 51701; 84132; 90471; 90715; 96372; 99285; G0480; J1200; J1630; J2060

== ENCOUNTER 2018-08-04 06:51 | Inpatient (IN) | payer MEDICARE, MEDICAID ==
[~2018-08-04] VITALS: Ht 172.7 cm; Wt 55.2 kg
[~2018-08-04 06:51] MED LIST changes: +BACI500P3 TP; +NICO-802 TD; -OLAN7.5T2 PO; +OLAN7.5T9 PO
[2018-08-04 10:21] LABS: GLUCOSE,POINT OF CARE 100 MG/DL (70-110)
[2018-08-04] MEDS ORDERED: ACETAMINOPHEN 325 MG TABLET PO PRN ×2 (10:30→13:30)
[2018-08-04] MEDS ORDERED: QUEtiapine FUMARATE 100 MG TABLET PO PRN (10:30)
[2018-08-04] MEDS ORDERED: ZOLPIDEM TARTRATE 10 MG TABLET PO PRN (10:30)
[2018-08-04] MEDS ORDERED: IBUPROFEN 400 MG TABLET PO PRN ×2 (10:30→13:30)
[2018-08-04] MEDS ORDERED: CloNIDine HCL 0.1 MG TABLET PO PRN (13:30)
[2018-08-04] MEDS ORDERED: PETROLATUM,WHITE 71 GM JELLY TP PRN (13:30)
[2018-08-04] MEDS ORDERED: GuaiFENesin/D-METHORPHAN [SUGAR-FREE] 200-20MG/10 ML SYRUP UDCUP PO PRN (13:30)
[2018-08-04] MEDS ORDERED: DOCUSATE SODIUM 100 MG CAPSULE PO PRN (13:30)
[2018-08-04] MEDS ORDERED: ALBUTEROL SULFATE HFA 90 MCG/PUFF 8 GM INHALER IH PRN (13:30)
[2018-08-04] MEDS ORDERED: LOPERAMIDE HCL 2 MG CAPSULE PO PRN (13:30)
[2018-08-04] MEDS ORDERED: PNEUMOCOCCAL VACCINE POLYVALENT 0.5 ML VIAL [PPSV23] IM ONE (13:45)
[2018-08-04 16:06] VITALS: BP 116/82
[2018-08-05 05:18] VITALS: BP 120/68
[2018-08-05 08:00] LABS: BASOPHILS % (AUTO) 1.1 % (0.0-2.0); EOSINOPHILS % (AUTO) 0.8 % (1.0-6.0); HEMOGLOBIN 11.8 g/dL (12.0-16.0); LYMPHOCYTES # (AUTO) 2.6 K/uL (1.0-4.8); LYMPHOCYTES % (AUTO) 44.7 % (22.0-44.0); MEAN CORPUSCULAR HEMOGLOBIN 28.7 pg (26.0-34.0); MEAN CORPUSCULAR HGB CONC 34.7 G/dL (31.0-37.0); MEAN CORPUSCULAR VOLUME 83 fL (80-100); MONOCYTES # (AUTO) 0.5 K/uL (0.1-1.0); MONOCYTES % (AUTO) 8.2 % (2.0-9.0); NEUTROPHILS # (AUTO) 2.6 K/uL (1.8-7.7); NEUTROPHILS % (AUTO) 45.2 % (40.0-70.0); PLATELET COUNT (AUTO) 238 K/uL (150-450); RED BLOOD CELL COUNT(AUTO) 4.11 MIL/uL (4.00-5.20); RED CELL DISTRIBUTION WIDTH 16.9 % (11.5-14.5)
[2018-08-05 08:09] LABS: HEMOGLOBIN A1C 5.5 % (4.5-6.2)
[2018-08-05 08:24] LABS: ALANINE AMINOTRANSFERASE 45 U/L (12-78); ALBUMIN 2.3 g/dL (3.4-5.0); ALKALINE PHOSPHATASE 53 U/L (46-116); ANION GAP 5 mmol/L (8-16); ASPARTATE AMINOTRANSFERASE 44 U/L (15-37); BILIRUBIN,TOTAL 0.2 mg/dL (0.1-1.0); CALCIUM, TOTAL 8.7 mg/dL (8.8-10.5); CARBON DIOXIDE 29 mmol/L (22-29); CHLORIDE 107 mmol/L (98-107); CHOL/HDL RATIO 2.2 (3.9-5.7); CHOLESTEROL 150 mg/dL (131-200); CREATININE 0.65 mg/dL (0.60-1.30); GLOMERULAR FILTR. RATE CALC > 60 mL/min (>60); GLUCOSE,RANDOM 92 mg/dL (70-110); HDL CHOLESTEROL 69 mg/dL (40-60); LDL CHOL (CALC.) 68 mg/dL (0-130); POTASSIUM 3.2 mmol/L (3.5-5.1); SODIUM SERUM 141 mmol/L (136-145); THYROID STIMULATING HORMONE 0.67 uIU/mL (0.36-3.74); TOTAL PROTEIN, SERUM 5.2 g/dL (6.4-8.2); TRIGLYCERIDES 66 mg/dL (15-150); UREA NITROGEN, BLOOD 11 mg/dL (7-18)
[2018-08-05 08:30] VITALS: BP 102/67
[2018-08-05] MEDS: NICOTINE 14 MG/24 HOUR PATCH TD PRN (10:03)
[2018-08-05] MEDS ORDERED: POTASSIUM CHLORIDE 20 MEQ ER TABLET PO ONE (10:45)
[2018-08-05] MEDS: OLANZapine 7.5 MG TABLET PO SCH ×3 (10:45→20:01)
[2018-08-05] MEDS: DIVALPROEX SODIUM 500 MG DR TABLET PO SCH ×3 (10:45→20:01)
[2018-08-05 16:13] VITALS: BP 107/69
[2018-08-06 06:10] VITALS: BP 112/66
[2018-08-06] MEDS: OLANZapine 7.5 MG TABLET PO SCH ×2 (08:52→20:13)
[2018-08-06] MEDS: DIVALPROEX SODIUM 500 MG DR TABLET PO SCH ×2 (08:53→20:13)
[2018-08-06 16:00] VITALS: BP 135/85
[2018-08-07 05:24] VITALS: BP 125/71
[2018-08-07 08:21] VITALS: BP 111/64
[2018-08-07] MEDS: OLANZapine 7.5 MG TABLET PO SCH ×2 (08:40→20:17)
[2018-08-07] MEDS: DIVALPROEX SODIUM 500 MG DR TABLET PO SCH ×2 (08:40→20:17)
[2018-08-07] MEDS: MAG HYDROX/AL HYDROX/SIMETH ES 30 ML SUSPENSION UDCUP PO PRN (16:10)
[2018-08-07 16:17] VITALS: BP 103/62
[2018-08-07] MEDS: NICOTINE 14 MG/24 HOUR PATCH TD PRN (16:20)
[2018-08-07] MEDS: ONDANSETRON HCL 4 MG TABLET PO PRN (20:33)
[2018-08-08 00:20] VITALS: BP 110/68
[2018-08-08] MEDS: MAG HYDROX/AL HYDROX/SIMETH ES 30 ML SUSPENSION UDCUP PO PRN ×2 (04:11→20:15)
[2018-08-08 08:28] VITALS: BP 107/61
[2018-08-08] MEDS: OLANZapine 7.5 MG TABLET PO SCH ×2 (08:31→20:15)
[2018-08-08] MEDS: DIVALPROEX SODIUM 500 MG DR TABLET PO SCH ×2 (08:31→20:15)
[2018-08-08 16:16] VITALS: BP 114/64
[2018-08-08] MEDS: NICOTINE 14 MG/24 HOUR PATCH TD PRN ×2 (19:18→19:20)
[2018-08-09 05:24] VITALS: BP 116/72
[2018-08-09 08:11] VITALS: BP 115/61
[2018-08-09] MEDS: OLANZapine 7.5 MG TABLET PO SCH ×2 (08:34→20:37)
[2018-08-09] MEDS: DIVALPROEX SODIUM 500 MG DR TABLET PO SCH ×2 (08:34→20:37)
[2018-08-09 16:00] VITALS: BP 113/73
[2018-08-10 06:07] VITALS: BP 110/70
[2018-08-10 08:30] VITALS: BP 112/65
[2018-08-10] MEDS: DIVALPROEX SODIUM 500 MG DR TABLET PO SCH ×2 (08:51→20:34)
[2018-08-10] MEDS: OLANZapine 7.5 MG TABLET PO SCH ×2 (08:51→20:34)
[2018-08-10 16:08] VITALS: BP 102/64
[2018-08-10] MEDS: ONDANSETRON HCL 4 MG TABLET PO PRN ×2 (17:12→21:35)
[2018-08-10] MEDS: MAG HYDROX/AL HYDROX/SIMETH ES 30 ML SUSPENSION UDCUP PO PRN (18:01)
[2018-08-10] MEDS: NICOTINE 14 MG/24 HOUR PATCH TD PRN (18:02)
[2018-08-10] MEDS: MAGNESIUM HYDROXIDE SUSPENSION 30 ML UDCUP PO PRN (21:35)
[2018-08-11 05:43] VITALS: BP 110/78
[2018-08-11] MEDS: DIVALPROEX SODIUM 500 MG DR TABLET PO SCH ×2 (08:04→20:34)
[2018-08-11] MEDS: OLANZapine 7.5 MG TABLET PO SCH ×2 (08:04→20:34)
[2018-08-11] MEDS: ONDANSETRON HCL 4 MG TABLET PO PRN ×2 (08:04→17:51)
[2018-08-11 08:26] VITALS: BP 114/62
[2018-08-11 16:13] VITALS: BP 101/68
[2018-08-11 18:20] VITALS: BP 119/71
[2018-08-11] MEDS: LORazepam 2 MG TABLET PO PRN (18:31)
[2018-08-12 05:32] VITALS: BP 112/68
[2018-08-12] MEDS: OLANZapine 7.5 MG TABLET PO SCH ×2 (08:20→20:36)
[2018-08-12] MEDS: OMEPRAZOLE 20 MG CAPSULE PO SCH (08:20)
[2018-08-12] MEDS: DIVALPROEX SODIUM 500 MG DR TABLET PO SCH ×2 (08:20→20:36)
[2018-08-12 08:33] VITALS: BP 107/65
[2018-08-12] MEDS: NICOTINE 14 MG/24 HOUR PATCH TD PRN (11:49)
[2018-08-12] MEDS: MAGNESIUM HYDROXIDE SUSPENSION 30 ML UDCUP PO PRN (16:38)
[2018-08-12] MEDS: ONDANSETRON HCL 4 MG TABLET PO PRN (17:24)
[2018-08-12 18:29] VITALS: BP 111/68
[2018-08-12] MEDS: LORazepam 2 MG TABLET PO PRN (18:29)
[2018-08-13 00:01] VITALS: BP 100/61
[2018-08-13] MEDS: DIVALPROEX SODIUM 500 MG DR TABLET PO SCH ×2 (08:39→20:42)
[2018-08-13] MEDS: OLANZapine 7.5 MG TABLET PO SCH (08:39)
[2018-08-13] MEDS: OMEPRAZOLE 20 MG CAPSULE PO SCH (08:39)
[2018-08-13] MEDS: ONDANSETRON HCL 4 MG TABLET PO PRN (15:56)
[2018-08-13 16:25] VITALS: BP 101/79
[2018-08-13] MEDS: OLANZapine 10 MG TABLET PO SCH (20:42)
[2018-08-14 00:34] VITALS: BP 97/60
[2018-08-14] MEDS: OLANZapine 10 MG TABLET PO SCH ×2 (08:31→20:02)
[2018-08-14] MEDS: DIVALPROEX SODIUM 500 MG DR TABLET PO SCH ×2 (08:31→20:02)
[2018-08-14] MEDS: OMEPRAZOLE 20 MG CAPSULE PO SCH (08:31)
[2018-08-14] MEDS: NICOTINE 14 MG/24 HOUR PATCH TD PRN (08:33)
[2018-08-14 08:49] VITALS: BP 107/65
[2018-08-14] MEDS: ONDANSETRON HCL 4 MG TABLET PO PRN ×2 (09:39→20:15)
[2018-08-14 16:24] VITALS: BP 108/64
[2018-08-14] MEDS ORDERED: AMITRIPTYLINE HCL 10 MG TABLET PO PRN (17:15)
[2018-08-14] MEDS: LORazepam 2 MG TABLET PO PRN (20:15)
[2018-08-15 04:48] VITALS: BP 111/66
[2018-08-15 08:22] VITALS: BP 109/66
[2018-08-15] MEDS: DIVALPROEX SODIUM 500 MG DR TABLET PO SCH ×2 (08:26→20:04)
[2018-08-15] MEDS: OMEPRAZOLE 20 MG CAPSULE PO SCH (08:26)
[2018-08-15] MEDS: OLANZapine 10 MG TABLET PO SCH ×2 (08:26→20:04)
[2018-08-15 16:03] VITALS: BP 103/62
[2018-08-15] MEDS: ONDANSETRON HCL 4 MG TABLET PO PRN (20:04)
[2018-08-16 01:35] VITALS: BP 113/62
[2018-08-16] MEDS: OMEPRAZOLE 20 MG CAPSULE PO SCH (08:18)
[2018-08-16] MEDS: OLANZapine 10 MG TABLET PO SCH ×2 (08:18→20:09)
[2018-08-16] MEDS: DIVALPROEX SODIUM 500 MG DR TABLET PO SCH ×2 (08:18→20:09)
[2018-08-16] MEDS: NICOTINE 14 MG/24 HOUR PATCH TD PRN (08:19)
[2018-08-16 08:26] VITALS: BP 110/61
[2018-08-16] MEDS: LORazepam 2 MG TABLET PO PRN (09:46)
[2018-08-16 16:34] VITALS: BP 106/65
[2018-08-17 05:27] VITALS: BP 114/65
[2018-08-17] MEDS: OLANZapine 10 MG TABLET PO SCH ×2 (08:18→21:05)
[2018-08-17] MEDS: DIVALPROEX SODIUM 500 MG DR TABLET PO SCH ×2 (08:18→21:05)
[2018-08-17] MEDS: LORazepam 2 MG TABLET PO PRN ×2 (08:19→13:49)
[2018-08-17] MEDS: OMEPRAZOLE 20 MG CAPSULE PO SCH (08:19)
[2018-08-17 08:40] VITALS: BP 110/78
[2018-08-17 16:34] VITALS: BP 101/63
[2018-08-17] MEDS: NICOTINE 14 MG/24 HOUR PATCH TD PRN (17:29)
[2018-08-17] MEDS: MAGNESIUM HYDROXIDE SUSPENSION 30 ML UDCUP PO PRN (18:15)
[2018-08-18 00:38] VITALS: BP 106/72
[2018-08-18] MEDS: DIVALPROEX SODIUM 500 MG DR TABLET PO SCH ×2 (08:27→19:49)
[2018-08-18] MEDS: OLANZapine 10 MG TABLET PO SCH ×2 (08:27→19:49)
[2018-08-18] MEDS: OMEPRAZOLE 20 MG CAPSULE PO SCH (08:27)
[2018-08-18] MEDS: NICOTINE 14 MG/24 HOUR PATCH TD PRN (08:39)
[2018-08-18] MEDS: LORazepam 2 MG TABLET PO PRN ×2 (08:39→19:57)
[2018-08-18 09:14] VITALS: BP 118/72
[2018-08-18 16:22] VITALS: BP 104/61
[2018-08-19 06:00] VITALS: BP 102/64
[2018-08-19 08:38] VITALS: BP 106/66
[2018-08-19] MEDS: DIVALPROEX SODIUM 500 MG DR TABLET PO SCH (08:50)
[2018-08-19] MEDS: OMEPRAZOLE 20 MG CAPSULE PO SCH (08:50)
[2018-08-19] MEDS: LORazepam 2 MG TABLET PO PRN (08:50)
[2018-08-19] MEDS: NICOTINE 14 MG/24 HOUR PATCH TD PRN (08:56)
[2018-08-19] MEDS: OLANZapine 10 MG TABLET PO SCH (08:57)
[2018-08-19] MEDS ORDERED: DIVA-78 PO (10:20)
[2018-08-19] MEDS ORDERED: OLAN10TA20 PO (10:20)
[2018-08-19] MEDS ORDERED: OLAN10TA3 PO (10:51)
[2018-08-19] MEDS ORDERED: OMEP20 PO (10:51)
== END 2018-08-19 13:10 | disposition home or self-care (01) | DRG 885 ==
LOC: EMS 06:55 → B2X 11:26
DX: F25.0 Schizoaffective disorder, bipolar type (principal); E43 Unspecified severe protein-calorie malnutrition; B18.2 Chronic viral hepatitis C; I10 Essential (primary) hypertension; J44.9 Chronic obstructive pulmonary disease, unspecified; G40.909 Epilepsy, unspecified, not intractable, without status epilepticus; E11.9 Type 2 diabetes mellitus without complications; D64.9 Anemia, unspecified; E78.5 Hyperlipidemia, unspecified; E87.6 Hypokalemia; F10.10 Alcohol abuse, uncomplicated; F15.90 Other stimulant use, unspecified, uncomplicated; R45.87 Impulsiveness; G43.909 Migraine, unspecified, not intractable, without status migrainosus; K21.9 Gastro-esophageal reflux disease without esophagitis; K74.60 Unspecified cirrhosis of liver; Z59.0 Homelessness; Z79.899 Other long term (current) drug therapy
CPT/HCPCS: 83036; 84132; 84443; Q0162

== ENCOUNTER 2018-08-24 05:54 | Emergency (ER) | payer MEDICARE, OTHER ==
[~2018-08-24] VITALS: Ht 172.7 cm; Wt 56.8 kg
[~2018-08-24 05:54] MED LIST changes: -BACI500P3 TP; -NICO-802 TD; +OLAN10TA20 PO; +OLAN10TA3 PO; -OLAN7.5T9 PO; +OMEP20 PO; -SERT50TA12 PO
[2018-08-24 06:05] VITALS: BP 154/108
[2018-08-24 06:36] LABS: BASOPHILS % (AUTO) 1.2 % (0.0-2.0); EOSINOPHILS % (AUTO) 8.3 % (1.0-6.0); HEMATOCRIT 37.2 % (36-46); HEMOGLOBIN 12.4 g/dL (12.0-16.0); LYMPHOCYTES # (AUTO) 3.9 K/uL (1.0-4.8); LYMPHOCYTES % (AUTO) 35.7 % (22.0-44.0); MEAN CORPUSCULAR HEMOGLOBIN 28.1 pg (26.0-34.0); MEAN CORPUSCULAR HGB CONC 33.4 G/dL (31.0-37.0); MEAN CORPUSCULAR VOLUME 84 fL (80-100); NEUTROPHILS % (AUTO) 45.8 % (40.0-70.0); PLATELET COUNT (AUTO) 254 K/uL (150-450); RED BLOOD CELL COUNT(AUTO) 4.43 MIL/uL (4.00-5.20); RED CELL DISTRIBUTION WIDTH 16.8 % (11.5-14.5)
[2018-08-24 06:46] LABS: ANION GAP 9 mmol/L (8-16); CARBON DIOXIDE 26 mmol/L (22-29); CHLORIDE 103 mmol/L (98-107); GLOMERULAR FILTR. RATE CALC 52 mL/min (>60); GLUCOSE,RANDOM 109 mg/dL (70-110); POTASSIUM 3.4 mmol/L (3.5-5.1); SODIUM SERUM 138 mmol/L (136-145); UREA NITROGEN, BLOOD 29 mg/dL (7-18)
[2018-08-24 06:52] LABS: ALANINE AMINOTRANSFERASE 63 U/L (12-78); ALBUMIN 3.4 g/dL (3.4-5.0); ALKALINE PHOSPHATASE 73 U/L (46-116); ASPARTATE AMINOTRANSFERASE 48 U/L (15-37); BILIRUBIN,TOTAL 0.3 mg/dL (0.1-1.0)
[2018-08-24] MEDS ORDERED: LORazepam 2 MG/ML VIAL IM ONE (08:00)
== END 2018-08-24 12:46 | disposition home or self-care (01) ==
LOC: EMS 05:55
DX: F25.9 Schizoaffective disorder, unspecified (principal); F31.9 Bipolar disorder, unspecified; F17.200 Nicotine dependence, unspecified, uncomplicated; F19.90 Other psychoactive substance use, unspecified, uncomplicated; Z59.0 Homelessness; Z88.8 Allergy status to other drugs, medicaments and biological substances
CPT/HCPCS: 36415; 80053; 85025; 96372; 99284; G0480; J2060

== ENCOUNTER 2018-08-31 15:21 | Inpatient (IN) | payer MEDICARE, MEDICAID ==
[~2018-08-31] VITALS: Ht 172.7 cm; Wt 60.0 kg
[2018-08-31] MEDS ORDERED: QUEtiapine FUMARATE 100 MG TABLET PO PRN (16:30)
[2018-08-31] MEDS ORDERED: ZOLPIDEM TARTRATE 10 MG TABLET PO PRN (16:30)
[2018-08-31 16:40] VITALS: BP 154/80
[2018-08-31] MEDS ORDERED: DIVA-78 PO (16:48)
[2018-08-31] MEDS: LORazepam 2 MG TABLET PO PRN (17:06)
[2018-08-31] MEDS ORDERED: PNEUMOCOCCAL VACCINE POLYVALENT 0.5 ML VIAL [PPSV23] IM ONE (17:15)
[2018-08-31 17:18] VITALS: BP 124/79
[2018-08-31] MEDS ORDERED: MAGNESIUM HYDROXIDE SUSPENSION 30 ML UDCUP PO PRN (20:15)
[2018-08-31] MEDS ORDERED: ACETAMINOPHEN 325 MG TABLET PO PRN (20:15)
[2018-08-31] MEDS ORDERED: IBUPROFEN 400 MG TABLET PO PRN (20:15)
[2018-08-31] MEDS ORDERED: MAG HYDROX/AL HYDROX/SIMETH ES 30 ML SUSPENSION UDCUP PO PRN (20:15)
[2018-08-31] MEDS ORDERED: DOCUSATE SODIUM 100 MG CAPSULE PO PRN (20:15)
[2018-08-31] MEDS ORDERED: GuaiFENesin/D-METHORPHAN [SUGAR-FREE] 200-20MG/10 ML SYRUP UDCUP PO PRN (20:15)
[2018-08-31] MEDS ORDERED: CloNIDine HCL 0.1 MG TABLET PO PRN (20:15)
[2018-08-31] MEDS ORDERED: LOPERAMIDE HCL 2 MG CAPSULE PO PRN (20:15)
[2018-08-31] MEDS ORDERED: ONDANSETRON HCL 4 MG TABLET PO PRN (20:15)
[2018-08-31] MEDS ORDERED: PETROLATUM,WHITE 71 GM JELLY TP PRN (20:15)
[2018-09-01 05:03] VITALS: BP 112/82
[2018-09-01] MEDS: OMEPRAZOLE 20 MG CAPSULE PO SCH (09:00)
[2018-09-01] MEDS: BACITRACIN 28.4 GM OINTMENT TP SCH ×2 (10:01→17:15)
[2018-09-01] MEDS: NICOTINE 14 MG/24 HOUR PATCH TD SCH (10:01)
[2018-09-01] MEDS: LORazepam 2 MG TABLET PO PRN (18:08)
[2018-09-01] MEDS: OLANZapine 10 MG TABLET PO SCH (20:28)
[2018-09-02 05:43] VITALS: BP 114/69
[2018-09-02] MEDS: OLANZapine 10 MG TABLET PO SCH ×2 (08:00→21:29)
[2018-09-02] MEDS: LORazepam 2 MG TABLET PO PRN ×2 (08:00→16:51)
[2018-09-02] MEDS: BACITRACIN 28.4 GM OINTMENT TP SCH ×2 (08:01→16:51)
[2018-09-02] MEDS: NICOTINE 14 MG/24 HOUR PATCH TD SCH (08:01)
[2018-09-02] MEDS: OMEPRAZOLE 20 MG CAPSULE PO SCH (08:05)
[2018-09-02 08:24] VITALS: BP 115/89
[2018-09-03 06:44] VITALS: BP 112/80
[2018-09-03] MEDS: ALBUTEROL SULFATE HFA 90 MCG/PUFF 8 GM INHALER IH PRN ×2 (07:12→16:00)
[2018-09-03 08:19] VITALS: BP 110/69
[2018-09-03] MEDS: LORazepam 2 MG TABLET PO PRN ×2 (08:22→16:00)
[2018-09-03] MEDS: OLANZapine 10 MG TABLET PO SCH ×2 (08:22→20:28)
[2018-09-03] MEDS: NICOTINE 14 MG/24 HOUR PATCH TD SCH (08:22)
[2018-09-03] MEDS: BACITRACIN 28.4 GM OINTMENT TP SCH ×2 (08:22→16:01)
[2018-09-03] MEDS: OMEPRAZOLE 20 MG CAPSULE PO SCH (08:28)
[2018-09-03 08:47] LABS: BASOPHILS % (AUTO) 0.8 % (0.0-2.0); HEMATOCRIT 37.1 % (36-46); LYMPHOCYTES % (AUTO) 35.8 % (22.0-44.0); MEAN CORPUSCULAR HEMOGLOBIN 27.5 pg (26.0-34.0); MEAN CORPUSCULAR HGB CONC 32.3 G/dL (31.0-37.0); MEAN CORPUSCULAR VOLUME 85 fL (80-100); MONOCYTES # (AUTO) 0.5 K/uL (0.1-1.0); MONOCYTES % (AUTO) 8.5 % (2.0-9.0); NEUTROPHILS % (AUTO) 35.3 % (40.0-70.0); PLATELET COUNT (AUTO) 248 K/uL (150-450); RED BLOOD CELL COUNT(AUTO) 4.36 MIL/uL (4.00-5.20); RED CELL DISTRIBUTION WIDTH 17.4 % (11.5-14.5)
[2018-09-03 08:52] LABS: ALANINE AMINOTRANSFERASE 29 U/L (12-78); ALBUMIN 2.2 g/dL (3.4-5.0); ALKALINE PHOSPHATASE 52 U/L (46-116); ANION GAP 3 mmol/L (8-16); ASPARTATE AMINOTRANSFERASE 25 U/L (15-37); BILIRUBIN,TOTAL 0.1 mg/dL (0.1-1.0); CALCIUM, TOTAL 9.3 mg/dL (8.8-10.5); CARBON DIOXIDE 31 mmol/L (22-29); CHLORIDE 105 mmol/L (98-107); CHOL/HDL RATIO 3.3 (3.9-5.7); CHOLESTEROL 143 mg/dL (131-200); CREATININE 0.48 mg/dL (0.60-1.30); FREE T4 (FREE THYROXINE) 0.88 ng/dL (0.76-1.46); GLOMERULAR FILTR. RATE CALC > 60 mL/min (>60); GLUCOSE,RANDOM 87 mg/dL (70-110); HDL CHOLESTEROL 44 mg/dL (40-60); LDL CHOL (CALC.) 83 mg/dL (0-130); POTASSIUM 4.3 mmol/L (3.5-5.1); SODIUM SERUM 139 mmol/L (136-145); THYROID STIMULATING HORMONE 1.07 uIU/mL (0.36-3.74); TOTAL PROTEIN, SERUM 5.7 g/dL (6.4-8.2); TRIGLYCERIDES 81 mg/dL (15-150); UREA NITROGEN, BLOOD 10 mg/dL (7-18)
[2018-09-03 08:53] LABS: VALPROIC ACID < 3 mcg/mL (50-100)
[2018-09-03 08:58] LABS: EOSINOPHILS % (AUTO) 19.6 % (1.0-6.0)
[2018-09-03 09:27] LABS: HEMOGLOBIN A1C 5.9 % (4.5-6.2)
[2018-09-03 16:20] VITALS: BP 140/89
[2018-09-04 03:38] VITALS: BP 116/68
[2018-09-04] MEDS: OLANZapine 10 MG TABLET PO SCH ×2 (08:32→20:06)
[2018-09-04] MEDS: NICOTINE 14 MG/24 HOUR PATCH TD SCH (08:33)
[2018-09-04] MEDS: BACITRACIN 28.4 GM OINTMENT TP SCH ×2 (08:35→16:55)
[2018-09-04] MEDS: OMEPRAZOLE 20 MG CAPSULE PO SCH (08:39)
[2018-09-04 16:07] VITALS: BP 122/77
[2018-09-04] MEDS: LORazepam 2 MG TABLET PO PRN (18:48)
[2018-09-04] MEDS ORDERED: AMITRIPTYLINE HCL 10 MG TABLET PO PRN (23:15)
[2018-09-05 00:38] VITALS: BP 114/72
[2018-09-05 08:00] VITALS: BP 112/73
[2018-09-05] MEDS: OLANZapine 10 MG TABLET PO SCH ×2 (08:59→20:12)
[2018-09-05] MEDS: BACITRACIN 28.4 GM OINTMENT TP SCH ×2 (09:00→16:33)
[2018-09-05] MEDS: NICOTINE 14 MG/24 HOUR PATCH TD SCH (09:00)
[2018-09-05] MEDS: OMEPRAZOLE 20 MG CAPSULE PO SCH (09:00)
[2018-09-05] MEDS: LORazepam 2 MG TABLET PO PRN (14:51)
[2018-09-05] MEDS: ALBUTEROL SULFATE HFA 90 MCG/PUFF 8 GM INHALER IH PRN (20:12)
[2018-09-06 05:49] VITALS: BP 124/78
[2018-09-06] MEDS: LORazepam 2 MG TABLET PO PRN ×2 (08:00→16:17)
[2018-09-06 08:44] VITALS: BP 137/89
[2018-09-06] MEDS: NICOTINE 14 MG/24 HOUR PATCH TD SCH (09:00)
[2018-09-06] MEDS: BACITRACIN 28.4 GM OINTMENT TP SCH ×2 (09:00→16:37)
[2018-09-06] MEDS: OMEPRAZOLE 20 MG CAPSULE PO SCH (09:00)
[2018-09-06] MEDS: OLANZapine 10 MG TABLET PO SCH ×2 (09:52→20:29)
[2018-09-06 16:12] VITALS: BP 127/72
[2018-09-06] MEDS: DIVALPROEX SODIUM 500 MG DR TABLET PO SCH (20:29)
[2018-09-07 06:25] VITALS: BP 116/63
[2018-09-07] MEDS: BACITRACIN 28.4 GM OINTMENT TP SCH ×2 (08:06→16:13)
[2018-09-07] MEDS: NICOTINE 14 MG/24 HOUR PATCH TD SCH (08:06)
[2018-09-07] MEDS: OLANZapine 10 MG TABLET PO SCH ×2 (08:06→20:33)
[2018-09-07] MEDS: LORazepam 2 MG TABLET PO PRN ×2 (08:07→15:20)
[2018-09-07] MEDS: OMEPRAZOLE 20 MG CAPSULE PO SCH (08:12)
[2018-09-07] MEDS: DIVALPROEX SODIUM 500 MG DR TABLET PO SCH ×2 (08:12→20:37)
[2018-09-07 08:20] VITALS: BP 106/66
[2018-09-08 05:24] VITALS: BP 110/72
[2018-09-08 08:15] VITALS: BP 102/64
[2018-09-08] MEDS: NICOTINE 14 MG/24 HOUR PATCH TD SCH (09:00)
[2018-09-08] MEDS: OMEPRAZOLE 20 MG CAPSULE PO SCH (09:00)
[2018-09-08] MEDS: BACITRACIN 28.4 GM OINTMENT TP SCH ×2 (09:00→16:55)
[2018-09-08] MEDS: DIVALPROEX SODIUM 500 MG DR TABLET PO SCH ×2 (09:00→20:28)
[2018-09-08] MEDS: OLANZapine 10 MG TABLET PO SCH ×2 (09:37→20:29)
[2018-09-08] MEDS: AMITRIPTYLINE HCL 10 MG TABLET PO PRN (09:38)
[2018-09-08] MEDS: LORazepam 2 MG TABLET PO PRN (16:00)
[2018-09-08] MEDS ORDERED: DiphenhydrAMINE HCL 50 MG/ML VIAL IM ONE (16:15)
[2018-09-08] MEDS: ALBUTEROL SULFATE HFA 90 MCG/PUFF 8 GM INHALER IH PRN (16:56)
[2018-09-09 06:50] VITALS: BP 111/65
[2018-09-09] MEDS: OLANZapine 10 MG TABLET PO SCH ×2 (08:16→20:12)
[2018-09-09] MEDS: LORazepam 2 MG TABLET PO PRN ×2 (08:16→20:12)
[2018-09-09] MEDS: BACITRACIN 28.4 GM OINTMENT TP SCH ×2 (08:18→16:33)
[2018-09-09] MEDS: NICOTINE 14 MG/24 HOUR PATCH TD SCH (08:18)
[2018-09-09] MEDS: OMEPRAZOLE 20 MG CAPSULE PO SCH (08:23)
[2018-09-09] MEDS: DIVALPROEX SODIUM 500 MG DR TABLET PO SCH ×2 (08:23→20:12)
[2018-09-09] MEDS: AMITRIPTYLINE HCL 10 MG TABLET PO PRN (08:55)
[2018-09-09] MEDS: ALBUTEROL SULFATE HFA 90 MCG/PUFF 8 GM INHALER IH PRN (09:01)
[2018-09-09 16:16] VITALS: BP 124/72
[2018-09-10 05:57] VITALS: BP 121/75
[2018-09-10 08:11] VITALS: BP 115/77
[2018-09-10] MEDS: DIVALPROEX SODIUM 500 MG DR TABLET PO SCH ×2 (08:24→20:31)
[2018-09-10] MEDS: OLANZapine 10 MG TABLET PO SCH ×2 (08:24→20:31)
[2018-09-10] MEDS: NICOTINE 14 MG/24 HOUR PATCH TD SCH (08:24)
[2018-09-10] MEDS: BACITRACIN 28.4 GM OINTMENT TP SCH ×2 (08:30→16:35)
[2018-09-10] MEDS: AMITRIPTYLINE HCL 10 MG TABLET PO PRN (08:31)
[2018-09-10] MEDS: OMEPRAZOLE 20 MG CAPSULE PO SCH (08:31)
[2018-09-10] MEDS: ALBUTEROL SULFATE HFA 90 MCG/PUFF 8 GM INHALER IH PRN (08:40)
[2018-09-10] MEDS: LORazepam 2 MG TABLET PO PRN (09:00)
[2018-09-10 16:28] VITALS: BP 107/69
[2018-09-11 06:18] VITALS: BP 109/72
[2018-09-11] MEDS: OLANZapine 10 MG TABLET PO SCH ×2 (08:01→20:00)
[2018-09-11] MEDS: BACITRACIN 28.4 GM OINTMENT TP SCH ×2 (08:01→16:55)
[2018-09-11] MEDS: DIVALPROEX SODIUM 500 MG DR TABLET PO SCH ×2 (08:01→20:00)
[2018-09-11] MEDS: NICOTINE 14 MG/24 HOUR PATCH TD SCH (08:02)
[2018-09-11] MEDS: AMITRIPTYLINE HCL 10 MG TABLET PO PRN (08:02)
[2018-09-11] MEDS: OMEPRAZOLE 20 MG CAPSULE PO SCH (08:08)
[2018-09-11 08:09] VITALS: BP 91/54
[2018-09-11] MEDS ORDERED: DIVA-78 PO (08:20)
[2018-09-11] MEDS ORDERED: ALBU8HFA IH (09:44)
[2018-09-11 10:13] VITALS: BP 106/67
[2018-09-11] MEDS: ALBUTEROL SULFATE HFA 90 MCG/PUFF 8 GM INHALER IH PRN ×2 (10:44→20:01)
[2018-09-11] MEDS: LORazepam 2 MG TABLET PO PRN (10:54)
[2018-09-11 16:14] VITALS: BP 116/79
[2018-09-12 06:21] VITALS: BP 113/68
[2018-09-12] MEDS: LORazepam 2 MG TABLET PO PRN (06:41)
[2018-09-12] MEDS: DIVALPROEX SODIUM 500 MG DR TABLET PO SCH ×2 (08:36→20:22)
[2018-09-12] MEDS: OMEPRAZOLE 20 MG CAPSULE PO SCH (08:37)
[2018-09-12] MEDS: OLANZapine 10 MG TABLET PO SCH ×2 (08:37→20:22)
[2018-09-12] MEDS: BACITRACIN 28.4 GM OINTMENT TP SCH ×2 (08:37→16:25)
[2018-09-12] MEDS: NICOTINE 14 MG/24 HOUR PATCH TD SCH (08:37)
[2018-09-12] MEDS: AMITRIPTYLINE HCL 10 MG TABLET PO PRN (08:37)
[2018-09-12] MEDS: ALBUTEROL SULFATE HFA 90 MCG/PUFF 8 GM INHALER IH PRN (08:39)
[2018-09-12 16:06] VITALS: BP 100/66
[2018-09-13 03:57] VITALS: BP 111/72
[2018-09-13] MEDS: NICOTINE 14 MG/24 HOUR PATCH TD SCH (09:34)
[2018-09-13] MEDS: BACITRACIN 28.4 GM OINTMENT TP SCH (09:34)
[2018-09-13] MEDS: OMEPRAZOLE 20 MG CAPSULE PO SCH (09:34)
[2018-09-13] MEDS: OLANZapine 10 MG TABLET PO SCH (09:35)
[2018-09-13] MEDS: LORazepam 2 MG TABLET PO PRN (09:35)
[2018-09-13] MEDS: DIVALPROEX SODIUM 500 MG DR TABLET PO SCH (09:35)
[2018-09-13] MEDS ORDERED: DIVA-78 PO (10:15)
[2018-09-13] MEDS ORDERED: OLAN10TA20 PO (10:15)
== END 2018-09-13 13:00 | disposition home or self-care (01) | DRG 885 ==
LOC: B2S 16:32 → B2X 16:39
PROVIDERS: ADMIT Psychiatry & Neurology Child & Adolescent Psychiatry
DX: F25.0 Schizoaffective disorder, bipolar type (principal); E43 Unspecified severe protein-calorie malnutrition; B18.2 Chronic viral hepatitis C; Z59.0 Homelessness; K21.9 Gastro-esophageal reflux disease without esophagitis; J44.9 Chronic obstructive pulmonary disease, unspecified; E78.5 Hyperlipidemia, unspecified; F10.10 Alcohol abuse, uncomplicated; G40.909 Epilepsy, unspecified, not intractable, without status epilepticus; G43.909 Migraine, unspecified, not intractable, without status migrainosus; I10 Essential (primary) hypertension; K74.60 Unspecified cirrhosis of liver; Z91.14 Patient's other noncompliance with medication regimen; Z88.8 Allergy status to other drugs, medicaments and biological substances; Z71.41 Alcohol abuse counseling and surveillance of alcoholic; Z71.51 Drug abuse counseling and surveillance of drug abuser; F19.10 Other psychoactive substance abuse, uncomplicated; Z68.20 Body mass index [BMI] 20.0-20.9, adult; Z28.21 Immunization not carried out because of patient refusal
CPT/HCPCS: 83036; 84439; 84443; 87081; J1200; J3230; J3535

== ENCOUNTER 2018-09-19 06:58 | Inpatient (IN) | payer MEDICARE, MEDICAID ==
[~2018-09-19] VITALS: Ht 172.7 cm; Wt 62.7 kg
[~2018-09-19 06:58] MED LIST changes: +ALBU8HFA IH; -OLAN10TA3 PO
[2018-09-19] MEDS ORDERED: HALOPERIDOL LACTATE 5 MG/ML VIAL IM ONE (07:30)
[2018-09-19] MEDS ORDERED: LORazepam 2 MG/ML VIAL IM ONE (07:30)
[2018-09-19] MEDS ORDERED: DiphenhydrAMINE HCL 50 MG/ML VIAL IM ONE (07:30)
[2018-09-19 08:08] LABS: BASOPHILS % (AUTO) 1.2 % (0.0-2.0); EOSINOPHILS % (AUTO) 2.3 % (1.0-6.0); HEMATOCRIT 33.5 % (36-46); HEMOGLOBIN 11.2 g/dL (12.0-16.0); LYMPHOCYTES # (AUTO) 1.9 K/uL (1.0-4.8); LYMPHOCYTES % (AUTO) 35.1 % (22.0-44.0); MEAN CORPUSCULAR HEMOGLOBIN 27.7 pg (26.0-34.0); MEAN CORPUSCULAR HGB CONC 33.5 G/dL (31.0-37.0); MEAN CORPUSCULAR VOLUME 83 fL (80-100); MONOCYTES # (AUTO) 0.5 K/uL (0.1-1.0); MONOCYTES % (AUTO) 9.6 % (2.0-9.0); NEUTROPHILS # (AUTO) 2.8 K/uL (1.8-7.7); NEUTROPHILS % (AUTO) 51.8 % (40.0-70.0); PLATELET COUNT (AUTO) 342 K/uL (150-450); RED BLOOD CELL COUNT(AUTO) 4.05 MIL/uL (4.00-5.20); RED CELL DISTRIBUTION WIDTH 17.9 % (11.5-14.5)
[2018-09-19 08:21] LABS: ANION GAP 8 mmol/L (8-16); CALCIUM, TOTAL 9.2 mg/dL (8.8-10.5); CARBON DIOXIDE 26 mmol/L (22-29); CHLORIDE 105 mmol/L (98-107); CREATININE 0.71 mg/dL (0.60-1.30); GLOMERULAR FILTR. RATE CALC > 60 mL/min (>60); GLUCOSE,RANDOM 99 mg/dL (70-110); POTASSIUM 3.4 mmol/L (3.5-5.1); SODIUM SERUM 139 mmol/L (136-145); UREA NITROGEN, BLOOD 20 mg/dL (7-18)
[2018-09-19 08:25] LABS: ALANINE AMINOTRANSFERASE 41 U/L (12-78); ALBUMIN 2.8 g/dL (3.4-5.0); ALKALINE PHOSPHATASE 61 U/L (46-116); ASPARTATE AMINOTRANSFERASE 28 U/L (15-37); BILIRUBIN,TOTAL 0.2 mg/dL (0.1-1.0); TOTAL PROTEIN, SERUM 6.3 g/dL (6.4-8.2); VALPROIC ACID < 3 mcg/mL (50-100)
[2018-09-19] MEDS ORDERED: ZOLPIDEM TARTRATE 10 MG TABLET PO PRN (10:00)
[2018-09-19] MEDS ORDERED: IBUPROFEN 400 MG TABLET PO PRN ×2 (10:15→21:00)
[2018-09-19] MEDS ORDERED: ACETAMINOPHEN 325 MG TABLET PO PRN ×2 (10:15→21:00)
[2018-09-19] MEDS ORDERED: PNEUMOCOCCAL VACCINE POLYVALENT 0.5 ML VIAL [PPSV23] IM ONE (19:45)
[2018-09-19 20:11] VITALS: BP 141/88
[2018-09-19] MEDS ORDERED: LOPERAMIDE HCL 2 MG CAPSULE PO PRN (21:00)
[2018-09-19] MEDS ORDERED: DOCUSATE SODIUM 100 MG CAPSULE PO PRN (21:00)
[2018-09-19] MEDS ORDERED: PETROLATUM,WHITE 71 GM JELLY TP PRN (21:00)
[2018-09-19] MEDS ORDERED: POTASSIUM CHLORIDE 20 MEQ ER TABLET PO ONE (21:00)
[2018-09-19] MEDS ORDERED: MAG HYDROX/AL HYDROX/SIMETH ES 30 ML SUSPENSION UDCUP PO PRN (21:00)
[2018-09-19] MEDS ORDERED: CloNIDine HCL 0.1 MG TABLET PO PRN (21:00)
[2018-09-19] MEDS ORDERED: MAGNESIUM HYDROXIDE SUSPENSION 30 ML UDCUP PO PRN (21:00)
[2018-09-19] MEDS ORDERED: GuaiFENesin/D-METHORPHAN [SUGAR-FREE] 200-20MG/10 ML SYRUP UDCUP PO PRN (21:00)
[2018-09-19] MEDS ORDERED: ONDANSETRON HCL 4 MG TABLET PO PRN (21:00)
[2018-09-20] MEDS ORDERED: POTASSIUM CHLORIDE 20 MEQ ER TABLET PO ONE (08:15)
[2018-09-20] MEDS: OMEPRAZOLE 20 MG CAPSULE PO SCH (08:57)
[2018-09-20] MEDS: NICOTINE 14 MG/24 HOUR PATCH TD PRN (10:14)
[2018-09-20] MEDS: DIVALPROEX SODIUM 500 MG DR TABLET PO SCH ×2 (11:00→20:35)
[2018-09-20] MEDS: OLANZapine 10 MG TABLET PO SCH ×2 (12:38→20:35)
[2018-09-21 06:58] VITALS: BP 110/60
[2018-09-21] MEDS: DIVALPROEX SODIUM 500 MG DR TABLET PO SCH ×2 (09:00→20:37)
[2018-09-21] MEDS: OMEPRAZOLE 20 MG CAPSULE PO SCH (09:00)
[2018-09-21] MEDS: OLANZapine 10 MG TABLET PO SCH ×2 (09:48→20:37)
[2018-09-21] MEDS: NICOTINE 14 MG/24 HOUR PATCH TD PRN (13:59)
[2018-09-22 06:27] VITALS: BP 106/61
[2018-09-22 08:45] LABS: POTASSIUM 4.9 mmol/L (3.5-5.1); THYROID STIMULATING HORMONE 0.47 uIU/mL (0.36-3.74)
[2018-09-22] MEDS: OLANZapine 10 MG TABLET PO SCH ×2 (09:05→21:25)
[2018-09-22] MEDS: LORazepam 2 MG TABLET PO PRN ×2 (09:08→16:27)
[2018-09-22] MEDS: OMEPRAZOLE 20 MG CAPSULE PO SCH (09:08)
[2018-09-22] MEDS: DIVALPROEX SODIUM 500 MG DR TABLET PO SCH ×2 (09:08→21:25)
[2018-09-22 16:28] VITALS: BP 111/72
[2018-09-22 16:41] LABS: HEMOGLOBIN A1C 5.9 % (4.5-6.2)
[2018-09-23 06:00] VITALS: BP 120/70
[2018-09-23] MEDS: OLANZapine 10 MG TABLET PO SCH ×2 (09:20→20:54)
[2018-09-23] MEDS: OMEPRAZOLE 20 MG CAPSULE PO SCH (09:20)
[2018-09-23] MEDS: DIVALPROEX SODIUM 500 MG DR TABLET PO SCH ×2 (09:20→20:54)
[2018-09-23 17:00] VITALS: BP 118/75
[2018-09-23] MEDS: LORazepam 2 MG TABLET PO PRN (17:10)
[2018-09-24 07:13] VITALS: BP 102/68
[2018-09-24] MEDS: DIVALPROEX SODIUM 500 MG DR TABLET PO SCH ×2 (08:52→20:36)
[2018-09-24] MEDS: OMEPRAZOLE 20 MG CAPSULE PO SCH (08:52)
[2018-09-24] MEDS: OLANZapine 10 MG TABLET PO SCH ×2 (08:52→20:36)
[2018-09-24] MEDS: LORazepam 2 MG TABLET PO PRN ×2 (08:52→16:47)
[2018-09-24 16:29] VITALS: BP 100/76
[2018-09-25 05:31] VITALS: BP 113/62
[2018-09-25] MEDS: DIVALPROEX SODIUM 500 MG DR TABLET PO SCH ×2 (09:12→20:41)
[2018-09-25] MEDS: OMEPRAZOLE 20 MG CAPSULE PO SCH (09:12)
[2018-09-25] MEDS: OLANZapine 10 MG TABLET PO SCH ×2 (09:12→20:41)
[2018-09-25] MEDS: LORazepam 2 MG TABLET PO PRN ×2 (09:12→17:08)
[2018-09-25] MEDS: NICOTINE 14 MG/24 HOUR PATCH TD PRN (09:13)
[2018-09-26 05:07] VITALS: BP 101/60
[2018-09-26] MEDS: NICOTINE 14 MG/24 HOUR PATCH TD PRN (09:18)
[2018-09-26] MEDS: OLANZapine 10 MG TABLET PO SCH ×2 (09:18→20:11)
[2018-09-26] MEDS: HALOPERIDOL 5 MG TABLET PO PRN ×2 (09:18→17:39)
[2018-09-26] MEDS: OMEPRAZOLE 20 MG CAPSULE PO SCH (09:18)
[2018-09-26] MEDS: DIVALPROEX SODIUM 500 MG DR TABLET PO SCH ×2 (09:18→20:11)
[2018-09-26] MEDS: LORazepam 2 MG TABLET PO PRN ×2 (09:18→17:39)
[2018-09-26 16:20] VITALS: BP 117/71
[2018-09-27] MEDS: OMEPRAZOLE 20 MG CAPSULE PO SCH (08:36)
[2018-09-27] MEDS: OLANZapine 10 MG TABLET PO SCH ×2 (08:36→20:24)
[2018-09-27] MEDS: DIVALPROEX SODIUM 500 MG DR TABLET PO SCH ×2 (08:36→20:25)
[2018-09-27] MEDS: NICOTINE 14 MG/24 HOUR PATCH TD PRN (08:48)
[2018-09-27] MEDS: LORazepam 2 MG TABLET PO PRN (08:49)
[2018-09-27 16:10] VITALS: BP 121/68
[2018-09-27] MEDS: ALBUTEROL SULFATE HFA 90 MCG/PUFF 8 GM INHALER IH PRN (17:40)
[2018-09-28 05:31] VITALS: BP 118/70
[2018-09-28] MEDS: LORazepam 2 MG TABLET PO PRN ×2 (05:57→16:56)
[2018-09-28] MEDS: OMEPRAZOLE 20 MG CAPSULE PO SCH (09:00)
[2018-09-28] MEDS: OLANZapine 10 MG TABLET PO SCH ×2 (09:11→20:45)
[2018-09-28] MEDS: DIVALPROEX SODIUM 500 MG DR TABLET PO SCH ×2 (09:11→20:45)
[2018-09-28] MEDS: NICOTINE 14 MG/24 HOUR PATCH TD PRN (13:57)
[2018-09-28 16:33] VITALS: BP 105/66
[2018-09-29 06:43] VITALS: BP 119/67
[2018-09-29] MEDS: LORazepam 2 MG TABLET PO PRN ×3 (08:01→16:53)
[2018-09-29] MEDS: OMEPRAZOLE 20 MG CAPSULE PO SCH (08:01)
[2018-09-29] MEDS: OLANZapine 10 MG TABLET PO SCH ×2 (08:01→20:36)
[2018-09-29] MEDS: DIVALPROEX SODIUM 500 MG DR TABLET PO SCH ×2 (08:01→20:36)
[2018-09-29] MEDS: HALOPERIDOL 5 MG TABLET PO PRN ×3 (08:01→16:53)
[2018-09-29 08:21] VITALS: BP 100/58
[2018-09-29] MEDS: NICOTINE 14 MG/24 HOUR PATCH TD PRN (10:43)
[2018-09-29 17:50] VITALS: BP 129/76
[2018-09-29] MEDS: ALBUTEROL SULFATE HFA 90 MCG/PUFF 8 GM INHALER IH PRN (17:57)
[2018-09-30 08:18] VITALS: BP 101/53
[2018-09-30] MEDS: OMEPRAZOLE 20 MG CAPSULE PO SCH (08:32)
[2018-09-30] MEDS: DIVALPROEX SODIUM 500 MG DR TABLET PO SCH (08:32)
[2018-09-30] MEDS: OLANZapine 10 MG TABLET PO SCH (08:32)
[2018-09-30] MEDS: ALBUTEROL SULFATE HFA 90 MCG/PUFF 8 GM INHALER IH PRN (08:33)
[2018-09-30] MEDS ORDERED: DIVA-78 PO (09:34)
[2018-09-30] MEDS ORDERED: OLAN10TA20 PO (09:34)
[2018-09-30] MEDS: NICOTINE 14 MG/24 HOUR PATCH TD PRN (09:51)
== END 2018-09-30 13:05 | disposition home or self-care (01) | DRG 885 ==
LOC: EMS 06:59 → B3A 17:44
PROVIDERS: ADMIT Psychiatry & Neurology Psychiatry
DX: F25.0 Schizoaffective disorder, bipolar type (principal); R45.851 Suicidal ideations; Z28.21 Immunization not carried out because of patient refusal; K21.9 Gastro-esophageal reflux disease without esophagitis; J44.9 Chronic obstructive pulmonary disease, unspecified; E78.00 Pure hypercholesterolemia, unspecified; G43.909 Migraine, unspecified, not intractable, without status migrainosus; I10 Essential (primary) hypertension; G40.909 Epilepsy, unspecified, not intractable, without status epilepticus; B18.2 Chronic viral hepatitis C; D64.9 Anemia, unspecified; E11.9 Type 2 diabetes mellitus without complications; E78.5 Hyperlipidemia, unspecified; E87.6 Hypokalemia; F10.10 Alcohol abuse, uncomplicated; F15.10 Other stimulant abuse, uncomplicated; Z79.899 Other long term (current) drug therapy; Z59.0 Homelessness
CPT/HCPCS: 83036; 84132; 84443; 87081; 96372; 99291; G0480; J1200; J1630; J2060; J3535

== ENCOUNTER 2019-09-06 08:51 | Inpatient (IN) | payer MEDICARE, OTHER ==
[~2019-09-06] VITALS: Ht 172.7 cm; Wt 64.5 kg
[~2019-09-06 08:51] MED LIST changes: -ALBU8HFA IH
[2019-09-06] MEDS ORDERED: AMIT25TA9 PO (09:11)
[2019-09-06] MEDS ORDERED: PARO10TA89 PO (09:11)
[2019-09-06] MEDS ORDERED: HYDROCODONE/ACETAMINOPHEN 5-325 MG TABLET PO ONE (11:30)
[2019-09-06 12:07] LABS: BASOPHILS % (AUTO) 1.4 % (0.0-2.0); EOSINOPHILS % (AUTO) 1.3 % (1.0-6.0); HEMOGLOBIN 10.2 g/dL (12.0-16.0); LYMPHOCYTES # (AUTO) 2.3 K/uL (1.0-4.8); LYMPHOCYTES % (AUTO) 19.7 % (22.0-44.0); MEAN CORPUSCULAR HGB CONC 32.9 G/dL (31.0-37.0); MEAN CORPUSCULAR VOLUME 85 fL (80-100); MONOCYTES # (AUTO) 0.8 K/uL (0.1-1.0); MONOCYTES % (AUTO) 6.9 % (2.0-9.0); NEUTROPHILS # (AUTO) 8.2 K/uL (1.8-7.7); NEUTROPHILS % (AUTO) 70.7 % (40.0-70.0); PLATELET COUNT (AUTO) 698 K/uL (150-450); RED BLOOD CELL COUNT(AUTO) 3.64 MIL/uL (4.00-5.20); RED CELL DISTRIBUTION WIDTH 16.9 % (11.5-14.5)
[2019-09-06 12:15] LABS: ANION GAP 5 mmol/L (8-16); CALCIUM, TOTAL 9.7 mg/dL (8.8-10.5); CARBON DIOXIDE 27 mmol/L (22-29); CHLORIDE 99 mmol/L (98-107); CREATININE 0.59 mg/dL (0.60-1.30); GLOMERULAR FILTR. RATE CALC > 60 mL/min (>60); GLUCOSE,RANDOM 94 mg/dL (70-110); POTASSIUM 3.7 mmol/L (3.5-5.1); SODIUM SERUM 131 mmol/L (136-145); UREA NITROGEN, BLOOD 10 mg/dL (7-18)
[2019-09-06 12:21] LABS: ALANINE AMINOTRANSFERASE 15 U/L (12-78); ALKALINE PHOSPHATASE 77 U/L (46-116); ASPARTATE AMINOTRANSFERASE 11 U/L (15-37); BILIRUBIN,TOTAL 0.1 mg/dL (0.1-1.0); C-REACTIVE PROTEIN QUANT 8.37 mg/dL (0.00-0.30); CREATINE KINASE, TOTAL ONLY 26 U/L (26-192); TOTAL PROTEIN, SERUM 7.8 g/dL (6.4-8.2)
[2019-09-06] MEDS ORDERED: MORPHINE SULFATE 2 MG/ML SYRINGE IVP PRN (14:30)
[2019-09-06] MEDS ORDERED: MAGNESIUM HYDROXIDE SUSPENSION 30 ML UDCUP PO PRN (14:30)
[2019-09-06] MEDS ORDERED: ACETAMINOPHEN 325 MG TABLET PO PRN (14:30)
[2019-09-06] MEDS ORDERED: KETOROLAC TROMETHAMINE 30 MG/ML VIAL IVP ONE (14:30)
[2019-09-06] MEDS ORDERED: VANCOMYCIN HCL 1 GM/D5% WATER 200 ML IV ONE (14:30)
[2019-09-06] MEDS ORDERED: SODIUM CHLORIDE 0.9% 1,000 ML IV ONE (14:45)
[2019-09-06] MEDS: HEPARIN SODIUM,PORCINE 5,000 UNITS/ML VIAL SQ SCH ×2 (17:21→23:42)
[2019-09-06 17:26] LABS: URIC ACID 2.4 mg/dL (2.6-7.2)
[2019-09-06 19:38] VITALS: BP 116/71
[2019-09-06] MEDS: OxyCODONE HCL/ACETAMINOPHEN 5-325 MG TABLET PO PRN ×2 (19:45→23:43)
[2019-09-06] MEDS: DOCUSATE SODIUM 100 MG CAPSULE PO SCH (20:41)
[2019-09-06] MEDS ORDERED: INFLUENZA VIRUS VACCINE QVS 2019-20 (3YR+)/PF 60 MCG/0.5 ML SYRINGE IM ONE (20:45)
[2019-09-06] MEDS: VANCOMYCIN HCL 750 MG in DEXTROSE 5%-WATER 250 ML IV SCH (23:18)
[2019-09-06 23:35] VITALS: BP 107/65
[2019-09-07 01:33] LABS: AMPHET/METH SCREEN,URINE NEGATIVE (NEGATIVE); BARBITURATE SCREEN, URINE NEGATIVE (NEGATIVE); BENZODIAZEPINES SCREEN,URINE NEGATIVE (NEGATIVE); CANNABINOID SCREEN,URINE NEGATIVE (NEGATIVE); COCAINE SCREEN,URINE NEGATIVE (NEGATIVE); METHADONE SCREEN, URINE NEGATIVE (NEGATIVE); OPIATE SCREEN,URINE POSITIVE (NEGATIVE)
[2019-09-07 01:34] LABS: PHENCYCLIDINE SCREEN,URINE NEGATIVE (NEGATIVE)
[2019-09-07 04:18] VITALS: BP 133/78
[2019-09-07] MEDS ORDERED: SODIUM CHLORIDE 0.9% 500 ML IV ONE (05:53)
[2019-09-07] MEDS: VANCOMYCIN HCL 750 MG in DEXTROSE 5%-WATER 250 ML IV SCH (06:57)
[2019-09-07 07:54] LABS: ANION GAP 7 mmol/L (8-16); CALCIUM, TOTAL 9.3 mg/dL (8.8-10.5); CARBON DIOXIDE 25 mmol/L (22-29); CHLORIDE 98 mmol/L (98-107); GLOMERULAR FILTR. RATE CALC > 60 mL/min (>60); GLUCOSE,RANDOM 112 mg/dL (70-110); POTASSIUM 3.9 mmol/L (3.5-5.1); SODIUM SERUM 130 mmol/L (136-145); UREA NITROGEN, BLOOD 5 mg/dL (7-18)
[2019-09-07] MEDS: DOCUSATE SODIUM 100 MG CAPSULE PO SCH (08:06)
[2019-09-07] MEDS: HEPARIN SODIUM,PORCINE 5,000 UNITS/ML VIAL SQ SCH (08:06)
[2019-09-07] MEDS: OxyCODONE HCL/ACETAMINOPHEN 5-325 MG TABLET PO PRN ×2 (08:07→12:17)
[2019-09-07 08:20] VITALS: BP 129/69
[2019-09-07] MEDS ORDERED: FAMOTIDINE 20 MG TABLET PO SCH (09:00)
[2019-09-07 11:49] VITALS: BP 98/82
[2019-09-07] MEDS ORDERED: NICOTINE 14 MG/24 HOUR PATCH TD SCH (14:45)
[2019-09-08] MEDS ORDERED: NICOTINE 14 MG/24 HOUR PATCH TD SCH (09:00)
== END 2019-09-07 15:15 | disposition left against medical advice (07) | DRG 548 ==
LOC: EMS 08:53 → 6N 16:32
PROVIDERS: ADMIT Internal Medicine; ATTEND Internal Medicine
PROC: 0S9D3ZZ Drainage of Left Knee Joint, Percutaneous Approach (ICD-10-PCS; principal; 2019-09-07)
DX: M00.9 Pyogenic arthritis, unspecified (principal); E43 Unspecified severe protein-calorie malnutrition; E87.1 Hypo-osmolality and hyponatremia; Z68.1 Body mass index [BMI] 19.9 or less, adult; F20.9 Schizophrenia, unspecified; F31.9 Bipolar disorder, unspecified; F15.10 Other stimulant abuse, uncomplicated; Z53.29 Procedure and treatment not carried out because of patient's decision for other reasons; F41.9 Anxiety disorder, unspecified; Z87.891 Personal history of nicotine dependence; Z59.0 Homelessness; Z28.21 Immunization not carried out because of patient refusal
CPT/HCPCS: 73552; 73721; 76942; 84550; 85379; 86140; 87040; 87070; 87205; 93925; 93971; 97162; J1644; J1885; J3370; J7030; J7040; J7060

== ENCOUNTER 2021-07-18 18:14 | Emergency (ER) | payer MEDICARE, OTHER ==
[~2021-07-18] VITALS: Ht 172.7 cm; Wt 66.8 kg
[~2021-07-18 18:14] MED LIST changes: +CEPH500C3 PO; -DIVA-78 PO; +LURA80TA2 PO; -OLAN10TA20 PO; -OMEP20 PO
[2021-07-18] MEDS ORDERED: ACETAMINOPHEN 500 MG TABLET PO ONE (20:30)
[2021-07-18 20:36] LABS: COVID AG,FIA SOURCE NASOPHARYNGEAL
[2021-07-18 22:33] VITALS: BP 136/80
== END 2021-07-19 00:30 | disposition home or self-care (01) ==
LOC: EMS 18:14
DX: M25.562 Pain in left knee (principal); F17.210 Nicotine dependence, cigarettes, uncomplicated; F15.90 Other stimulant use, unspecified, uncomplicated; F31.9 Bipolar disorder, unspecified; F41.9 Anxiety disorder, unspecified; F20.9 Schizophrenia, unspecified; Z76.0 Encounter for issue of repeat prescription; Z20.822 Contact with and (suspected) exposure to COVID-19
CPT/HCPCS: 99284; 73562-TC; Z7502; Z7610